=== PATIENT | male | born 1940 | race Caucasian/White ===

== ENCOUNTER 2017-04-26 18:41 | Inpatient (IN) ==
[2017-04-26] MEDS ORDERED: hydrALAZINE 20 MG/1 ML VIAL IV STA (19:12)
[2017-04-26] MEDS ORDERED: ONDANSETRON 4 MG/2 ML VIAL ONE (19:24)
[2017-04-26] MEDS ORDERED: hydrALAZINE 20 MG/1 ML VIAL ONE (19:24)
[2017-04-26] MEDS ORDERED: HYDROmorphone 2 MG/1 ML VIAL IV STA (19:24)
[2017-04-26] MEDS ORDERED: ONDANSETRON 4 MG/2 ML VIAL IV STA (19:24)
[2017-04-26] MEDS ORDERED: HYDROmorphone 2 MG/1 ML VIAL ONE (19:25)
[2017-04-26 20:15] LABS: CKMB % 3.5 %; Troponin I Only < 0.015 NG/ML (0.00-0.045)
[2017-04-26] MEDS ORDERED: GLUCAGON 1 MG VIAL IM PRN (20:37)
[2017-04-26] MEDS ORDERED: ONDANSETRON 4 MG/2 ML VIAL IV PRN (20:37)
[2017-04-26] MEDS ORDERED: DEXTROSE 50% 25 GM/50 ML SYRINGE IV PRN (20:37)
[2017-04-26] MEDS ORDERED: hydrALAZINE 20 MG/1 ML VIAL IV PRN (20:50)
[2017-04-26] MEDS: INSULIN GLARGINE 100 UNIT/ML SUBCUT SCH (22:18)
[2017-04-26] MEDS: METOPROLOL TARTRATE 25 MG TABLET PO SCH (22:18)
[2017-04-26] MEDS: TAMSULOSIN 0.4 MG CAPSULE PO SCH (22:18)
[2017-04-26 22:51] LABS: Apearance,Urine CLEAR (Clear); Bacteria,Urine Occasional /HPF (Few); Bilirubin,Urine Negative (Negative); Blood, Urine Small mg/dL (Negative); Glucose,Urine (UA) >=500 mg/dL (Negative); Ketones,Urine Negative (Negative); Nitrite,Urine Negative (Negative); Protein,Urine >=500 MG/DL; RBC,Urine 3 /HPF (0-4); Urine Color Amber (Yellow); Urine Specific Gravity 1.014 (1.001-1.035); WBC,Urine <1 /HPF (0-6)
[2017-04-27] MEDS: INSULIN LISPRO 100 UNIT/ML SUBCUT SCH ×4 (00:57→17:43)
[2017-04-27 04:40] LABS: Basophils % 0.4 % (0.0-0.8); Eosinophils # 0.1 10*3/uL (0.0-0.87); Eosinophils % 0.8 % (0.00-10.9); Hematocrit 32.3 VOL% (42.0-52.0); Hemoglobin 11.1 GM/DL (14.0-18.0); Immature Granulocytes % 0.4 %; Immature Granulocytes Absolute 0.04 #; Lymphocytes # 1.2 10*3/uL (1.4-4.0); Lymphocytes % 13.8 % (21.2-54.2); Mean Corpuscular HGB Conc 34.4 GM/DL (32-36); Mean Corpuscular Hemoglobin 32 PG (27-34); Mean Corpuscular Volume 92.6 FL (87-102); Mean Platelet Volume 11.2 FL (9.6-12.0); Neutrophils # 6.6 10*3/uL (1.4-7.4); Neutrophils % 73.6 % (38.7-73.9); Platelet Count 169 T/CUMM (130-400); Red Blood Count 3.49 MC/CUMM (3.8-5.5); Red Cell Distribution Width 13.5 % (9.3-17.3); White Blood Count 8.9 T/CUMM (4-12)
[2017-04-27 05:06] LABS: Albumin 3.1 G/DL (3.4-5.0); Bilirubin,Total 3.8 MG/DL (0.2-1.0); Osmolality,Calculated 289.7 MOS/KG (273-304); Potassium 4.2 MMOL/L (3.5-5.1); Risk Ratio 6.57; Total Protein 6.7 G/DL (6.4-8.3); VLDL CHOLESTEROL 43.2 MG/DL
[2017-04-27] MEDS: FUROSEMIDE 40 MG TABLET PO SCH (08:40)
[2017-04-27] MEDS: amLODIPine 5 MG TABLET PO SCH (08:41)
[2017-04-27] MEDS: METOPROLOL TARTRATE 25 MG TABLET PO SCH ×2 (08:41→20:15)
[2017-04-27] MEDS: ENOXAPARIN 30 MG/0.3 ML SYRINGE SUBCUT SCH (08:41)
[2017-04-27] MEDS: PANTOPRAZOLE 40 MG TABLET PO SCH (08:41)
[2017-04-27] MEDS: GABAPENTIN 300 MG CAPSULE PO SCH ×2 (08:41→20:15)
[2017-04-27] MEDS ORDERED: COLESEVELAM 625 MG TABLET PO SCH (09:00)
[2017-04-27] MEDS: diphenhydrAMINE CAP 25 MG CAPSULE PO PRN ×2 (14:09→20:58)
[2017-04-27 14:53] LABS: % Iron Saturation 21.2 % (18-50)
[2017-04-27] MEDS: INSULIN GLARGINE 100 UNIT/ML SUBCUT SCH (20:15)
[2017-04-27] MEDS: TAMSULOSIN 0.4 MG CAPSULE PO SCH (20:15)
[2017-04-28] MEDS: INSULIN LISPRO 100 UNIT/ML SUBCUT SCH ×4 (00:27→22:22)
[2017-04-28] MEDS: diphenhydrAMINE CAP 25 MG CAPSULE PO PRN ×2 (00:32→05:17)
[2017-04-28 06:29] LABS: Calcium 8.6 MG/DL (8.5-10.1); Potassium 4.2 MMOL/L (3.5-5.1)
[2017-04-28 06:34] LABS: Bilirubin,Direct 3.05 MG/DL (0.0-0.20); Bilirubin,Indirect 1.2 MG/DL (0.0-1.0); Bilirubin,Total 4.2 MG/DL (0.2-1.0); Total Protein 6.5 G/DL (6.4-8.3)
[2017-04-28] MEDS ORDERED: REGADENOSON 0.4 MG/5 ML SYRINGE IV ONE (08:29)
[2017-04-28 08:32] LABS: Hepatitis A Ab IgM Quant 0.16 Index; Hepatitis A Ab IgM Result Negative (Negative); Hepatitis B Core IgM Quant 0.12 Index; Hepatitis B Core IgM Result Negative (Negative); Hepatitis B Surface Ag Quant 0.16 Index; Hepatitis B Surface Ag Result Negative (Negative); Hepatitis C Virus Ab Quant 0.05 Index; Hepatitis C Virus Ab Result Negative (Negative)
[2017-04-28] MEDS ORDERED: ALUM/MAG/SIMETH/LIDO VISC 1:1 30 ML BOTTLE PO ONE (10:07)
[2017-04-28] MEDS: hydrOXYzine HCL 25 MG TABLET PO SCH ×3 (11:00→22:20)
[2017-04-28] MEDS: METOPROLOL TARTRATE 25 MG TABLET PO SCH (11:01)
[2017-04-28] MEDS: FUROSEMIDE 40 MG TABLET PO SCH (11:01)
[2017-04-28] MEDS: GABAPENTIN 300 MG CAPSULE PO SCH ×2 (11:02→22:20)
[2017-04-28] MEDS: POLYETHYLENE GLYCOL POWDER 17 GM PACK PO SCH ×2 (11:02→22:19)
[2017-04-28] MEDS: amLODIPine 5 MG TABLET PO SCH (11:03)
[2017-04-28] MEDS: ENOXAPARIN 30 MG/0.3 ML SYRINGE SUBCUT SCH (11:04)
[2017-04-28] MEDS: PANTOPRAZOLE 40 MG TABLET PO SCH (11:04)
[2017-04-28 12:31] LABS: CKMB % 1.7 %; Troponin I Only < 0.015 NG/ML (0.00-0.045)
[2017-04-28 13:50] LABS: Apearance,Urine CLEAR (Clear); Bilirubin,Urine Negative (Negative); Blood, Urine Small mg/dL (Negative); Glucose,Urine (UA) >=500 mg/dL (Negative); Ketones,Urine Negative (Negative); Nitrite,Urine Negative (Negative); Protein,Urine 100 MG/DL; RBC,Urine 1 /HPF (0-4); Squamous Epithelial Cell,Urine Occasional /HPF (0-10); Urine Color Yellow (Yellow); Urine Specific Gravity 1.005 (1.001-1.035); Urine Urobilinogen < 2.0 EU/DL (0.2-1.0)
[2017-04-28] MEDS ORDERED: MAGNESIUM SULF RIDER 2 GM in PREMIX 1 EACH IV PRN (14:26)
[2017-04-28] MEDS ORDERED: POTASSIUM CHLORIDE RIDER 10 MEQ in PREMIX 1 EACH IV PRN (14:26)
[2017-04-28] MEDS: ASPIRIN EC 81 MG TABLET PO SCH (15:17)
[2017-04-28] MEDS: SODIUM BICARB INJ 100 MEQ in SODIUM CHLORIDE 0.45% 1,000 ML IV SCH (15:49)
[2017-04-28] MEDS ORDERED: INSULIN GLARGINE 100 UNIT/ML SUBCUT SCH (18:00)
[2017-04-28] MEDS: METOPROLOL TARTRATE 50 MG TABLET PO SCH (22:20)
[2017-04-28] MEDS: TAMSULOSIN 0.4 MG CAPSULE PO SCH (22:20)
[2017-04-29] MEDS: INSULIN LISPRO 100 UNIT/ML SUBCUT SCH ×4 (04:13→18:36)
[2017-04-29 06:19] LABS: Basophils # 0.1 10*3/uL (0.0-0.2); Basophils % 0.8 % (0.0-0.8); Eosinophils # 0.3 10*3/uL (0.0-0.87); Eosinophils % 4.1 % (0.00-10.9); Hematocrit 30.2 VOL% (42.0-52.0); Hemoglobin 10.4 GM/DL (14.0-18.0); Immature Granulocytes % 0.7 %; Immature Granulocytes Absolute 0.04 #; Lymphocytes # 1.3 10*3/uL (1.4-4.0); Lymphocytes % 21.7 % (21.2-54.2); Mean Corpuscular HGB Conc 34.4 GM/DL (32-36); Mean Corpuscular Hemoglobin 32 PG (27-34); Mean Corpuscular Volume 93.8 FL (87-102); Mean Platelet Volume 11.5 FL (9.6-12.0); Monocytes # 0.5 10*3/uL (0.11-0.8); Monocytes % 8.8 % (1.7-12.7); Neutrophils # 3.9 10*3/uL (1.4-7.4); Neutrophils % 63.9 % (38.7-73.9); Platelet Count 186 T/CUMM (130-400); Red Blood Count 3.22 MC/CUMM (3.8-5.5); Red Cell Distribution Width 14.2 % (9.3-17.3); White Blood Count 6.1 T/CUMM (4-12)
[2017-04-29 06:49] LABS: Calcium 8.9 MG/DL (8.5-10.1); Magnesium 2.7 MG/DL (1.8-2.4); Osmolality,Calculated 297.4 MOS/KG (273-304)
[2017-04-29 06:51] LABS: Albumin 2.8 G/DL (3.4-5.0); Bilirubin,Direct 2.44 MG/DL (0.0-0.20); Bilirubin,Indirect 0.7 MG/DL (0.0-1.0); Bilirubin,Total 3.1 MG/DL (0.2-1.0); Total Protein 6.6 G/DL (6.4-8.3)
[2017-04-29] MEDS: SODIUM BICARB INJ 100 MEQ in SODIUM CHLORIDE 0.45% 1,000 ML IV SCH ×3 (10:03→23:10)
[2017-04-29] MEDS: amLODIPine 5 MG TABLET PO SCH (10:05)
[2017-04-29] MEDS: METOPROLOL TARTRATE 50 MG TABLET PO SCH ×2 (10:05→21:20)
[2017-04-29] MEDS: PANTOPRAZOLE 40 MG TABLET PO SCH (10:05)
[2017-04-29] MEDS: ASPIRIN EC 81 MG TABLET PO SCH (10:05)
[2017-04-29] MEDS: ENOXAPARIN 30 MG/0.3 ML SYRINGE SUBCUT SCH (10:07)
[2017-04-29] MEDS: FUROSEMIDE 40 MG TABLET PO SCH (10:19)
[2017-04-29] MEDS: hydrOXYzine HCL 25 MG TABLET PO SCH ×3 (10:19→21:20)
[2017-04-29] MEDS: POLYETHYLENE GLYCOL POWDER 17 GM PACK PO SCH ×2 (10:19→21:21)
[2017-04-29] MEDS: GABAPENTIN 300 MG CAPSULE PO SCH ×2 (10:19→21:20)
[2017-04-29] MEDS ORDERED: diphenhydrAMINE CAP 50 MG CAPSULE ONE (10:55)
[2017-04-29] MEDS ORDERED: DIAZEPAM 5 MG TABLET ONE (10:55)
[2017-04-29] MEDS ORDERED: diphenhydrAMINE CAP 25 MG CAPSULE ONE (10:56)
[2017-04-29] MEDS ORDERED: LIDOCAINE 1% 20 ML VIAL ONE (10:57)
[2017-04-29] MEDS ORDERED: HEPARIN/NACL 0.9% 2 UNITS/ML 1,000 ML IV ONE (10:57)
[2017-04-29] MEDS ORDERED: diphenhydrAMINE CAP 25 MG CAPSULE PO ONE (11:02)
[2017-04-29] MEDS ORDERED: DIAZEPAM 5 MG TABLET PO ONE (11:03)
[2017-04-29] MEDS ORDERED: HEPARIN/NACL 0.9% 2 UNITS/ML 500 ML IV ONE (11:11)
[2017-04-29] MEDS ORDERED: MIDAZOLAM 2 MG/2 ML VIAL ONE (11:18)
[2017-04-29] MEDS ORDERED: fentaNYL 100 MCG/2 ML VIAL ONE (11:19)
[2017-04-29] MEDS ORDERED: BIVALIRUDIN 250 MG VIAL IV ONE (12:04)
[2017-04-29] MEDS ORDERED: MORPHINE 2 MG/1 ML SYRINGE IV PRN (12:26)
[2017-04-29] MEDS ORDERED: ACETAMINOPHEN 325 MG TABLET PO PRN (12:26)
[2017-04-29] MEDS: TAMSULOSIN 0.4 MG CAPSULE PO SCH (21:20)
[2017-04-29] MEDS: EZETIMIBE 10 MG TABLET PO SCH (21:23)
[2017-04-29] MEDS: INSULIN GLARGINE 100 UNIT/ML SUBCUT SCH (21:23)
[2017-04-30] MEDS: INSULIN LISPRO 100 UNIT/ML SUBCUT SCH ×4 (01:03→18:04)
[2017-04-30 05:14] LABS: Basophils # 0.1 10*3/uL (0.0-0.2); Basophils % 1.1 % (0.0-0.8); Eosinophils # 0.3 10*3/uL (0.0-0.87); Hemoglobin 10.1 GM/DL (14.0-18.0); Immature Granulocytes % 0.5 %; Immature Granulocytes Absolute 0.03 #; Lymphocytes # 1.4 10*3/uL (1.4-4.0); Lymphocytes % 21.6 % (21.2-54.2); Mean Corpuscular HGB Conc 33.7 GM/DL (32-36); Mean Corpuscular Hemoglobin 32 PG (27-34); Mean Platelet Volume 10.7 FL (9.6-12.0); Monocytes # 0.5 10*3/uL (0.11-0.8); Monocytes % 7.5 % (1.7-12.7); Neutrophils # 4.1 10*3/uL (1.4-7.4); Neutrophils % 64.3 % (38.7-73.9); Platelet Count 192 T/CUMM (130-400); Red Blood Count 3.19 MC/CUMM (3.8-5.5); Red Cell Distribution Width 14.2 % (9.3-17.3); White Blood Count 6.4 T/CUMM (4-12)
[2017-04-30 05:43] LABS: Calcium 8.1 MG/DL (8.5-10.1); Magnesium 2.4 MG/DL (1.8-2.4); Osmolality,Calculated 293.3 MOS/KG (273-304); Potassium 3.9 MMOL/L (3.5-5.1)
[2017-04-30 05:46] LABS: Calcium 8.1 MG/DL (8.5-10.1); Osmolality,Calculated 295.1 MOS/KG (273-304); Potassium 3.9 MMOL/L (3.5-5.1)
[2017-04-30 05:50] LABS: Albumin 2.8 G/DL (3.4-5.0); Bilirubin,Total 1.8 MG/DL (0.2-1.0); Calcium 8.3 MG/DL (8.5-10.1); Osmolality,Calculated 293.3 MOS/KG (273-304); Total Protein 6.4 G/DL (6.4-8.3)
[2017-04-30] MEDS: POLYETHYLENE GLYCOL POWDER 17 GM PACK PO SCH ×2 (10:15→21:16)
[2017-04-30] MEDS: GABAPENTIN 300 MG CAPSULE PO SCH ×2 (10:16→21:16)
[2017-04-30] MEDS: METOPROLOL TARTRATE 50 MG TABLET PO SCH ×2 (10:16→21:16)
[2017-04-30] MEDS: ASPIRIN EC 81 MG TABLET PO SCH (10:16)
[2017-04-30] MEDS: FUROSEMIDE 40 MG TABLET PO SCH (10:16)
[2017-04-30] MEDS: PANTOPRAZOLE 40 MG TABLET PO SCH (10:16)
[2017-04-30] MEDS: ENOXAPARIN 30 MG/0.3 ML SYRINGE SUBCUT SCH (10:17)
[2017-04-30] MEDS: hydrOXYzine HCL 25 MG TABLET PO SCH ×3 (10:17→21:16)
[2017-04-30] MEDS: amLODIPine 5 MG TABLET PO SCH (10:17)
[2017-04-30] MEDS ORDERED: DEXTROSE 50% 25 GM/50 ML VIAL IV PRN (11:00)
[2017-04-30] MEDS: EZETIMIBE 10 MG TABLET PO SCH (21:16)
[2017-04-30] MEDS: TAMSULOSIN 0.4 MG CAPSULE PO SCH (21:16)
[2017-04-30] MEDS: INSULIN GLARGINE 100 UNIT/ML SUBCUT SCH (21:16)
[2017-05-01] MEDS: INSULIN LISPRO 100 UNIT/ML SUBCUT SCH ×4 (00:52→17:56)
[2017-05-01 04:16] LABS: Basophils # 0.1 10*3/uL (0.0-0.2); Eosinophils # 0.4 10*3/uL (0.0-0.87); Eosinophils % 5.8 % (0.00-10.9); Hematocrit 31.2 VOL% (42.0-52.0); Hemoglobin 10.4 GM/DL (14.0-18.0); Immature Granulocytes % 0.8 %; Immature Granulocytes Absolute 0.05 #; Lymphocytes # 1.5 10*3/uL (1.4-4.0); Lymphocytes % 23.7 % (21.2-54.2); Mean Corpuscular HGB Conc 33.3 GM/DL (32-36); Mean Corpuscular Hemoglobin 32 PG (27-34); Mean Corpuscular Volume 95.4 FL (87-102); Monocytes # 0.5 10*3/uL (0.11-0.8); Monocytes % 8.4 % (1.7-12.7); Neutrophils # 3.7 10*3/uL (1.4-7.4); Neutrophils % 60.3 % (38.7-73.9); Platelet Count 196 T/CUMM (130-400); Red Blood Count 3.27 MC/CUMM (3.8-5.5); Red Cell Distribution Width 14.4 % (9.3-17.3); White Blood Count 6.2 T/CUMM (4-12)
[2017-05-01 04:50] LABS: Albumin 2.9 G/DL (3.4-5.0); Calcium 8.4 MG/DL (8.5-10.1); Osmolality,Calculated 293.4 MOS/KG (273-304); Potassium 4.2 MMOL/L (3.5-5.1); Total Protein 6.5 G/DL (6.4-8.3)
[2017-05-01 04:59] LABS: Calcium 8.3 MG/DL (8.5-10.1); Magnesium 2.5 MG/DL (1.8-2.4); Osmolality,Calculated 291.4 MOS/KG (273-304); Potassium 4.2 MMOL/L (3.5-5.1)
[2017-05-01] MEDS: ENOXAPARIN 30 MG/0.3 ML SYRINGE SUBCUT SCH (09:49)
[2017-05-01] MEDS: METOPROLOL TARTRATE 50 MG TABLET PO SCH ×2 (09:50→21:22)
[2017-05-01] MEDS: PANTOPRAZOLE 40 MG TABLET PO SCH (09:50)
[2017-05-01] MEDS: ASPIRIN EC 81 MG TABLET PO SCH (09:50)
[2017-05-01] MEDS: POLYETHYLENE GLYCOL POWDER 17 GM PACK PO SCH ×2 (09:50→21:22)
[2017-05-01] MEDS: FUROSEMIDE 40 MG TABLET PO SCH (09:50)
[2017-05-01] MEDS: GABAPENTIN 300 MG CAPSULE PO SCH ×2 (09:50→21:21)
[2017-05-01] MEDS: amLODIPine 5 MG TABLET PO SCH (09:50)
[2017-05-01] MEDS ORDERED: hydrALAZINE 10 MG TABLET PO SCH (13:30)
[2017-05-01] MEDS: hydrALAZINE 25 MG TABLET PO SCH ×2 (14:03→21:22)
[2017-05-01] MEDS: ISOSORBIDE MONONITRATE 30 MG TABLET PO SCH (14:03)
[2017-05-01] MEDS: TAMSULOSIN 0.4 MG CAPSULE PO SCH (21:21)
[2017-05-01] MEDS: EZETIMIBE 10 MG TABLET PO SCH (21:21)
[2017-05-01] MEDS: INSULIN GLARGINE 100 UNIT/ML SUBCUT SCH (21:22)
[2017-05-02] MEDS: INSULIN LISPRO 100 UNIT/ML SUBCUT SCH ×4 (00:19→17:22)
[2017-05-02 03:37] LABS: Basophils # 0.1 10*3/uL (0.0-0.2); Basophils % 0.9 % (0.0-0.8); Eosinophils # 0.5 10*3/uL (0.0-0.87); Eosinophils % 6.6 % (0.00-10.9); Hematocrit 28.4 VOL% (42.0-52.0); Hemoglobin 9.4 GM/DL (14.0-18.0); Immature Granulocytes % 0.9 %; Immature Granulocytes Absolute 0.06 #; Lymphocytes # 1.9 10*3/uL (1.4-4.0); Lymphocytes % 26.8 % (21.2-54.2); Mean Corpuscular HGB Conc 33.1 GM/DL (32-36); Mean Corpuscular Hemoglobin 32 PG (27-34); Mean Corpuscular Volume 96.6 FL (87-102); Mean Platelet Volume 11.1 FL (9.6-12.0); Monocytes # 0.7 10*3/uL (0.11-0.8); Monocytes % 9.5 % (1.7-12.7); Neutrophils # 3.9 10*3/uL (1.4-7.4); Neutrophils % 55.3 % (38.7-73.9); Platelet Count 197 T/CUMM (130-400); Red Blood Count 2.94 MC/CUMM (3.8-5.5); Red Cell Distribution Width 14.1 % (9.3-17.3)
[2017-05-02 04:13] LABS: Albumin 2.6 G/DL (3.4-5.0); Bilirubin,Total 0.9 MG/DL (0.2-1.0); Osmolality,Calculated 298.3 MOS/KG (273-304); Potassium 4.5 MMOL/L (3.5-5.1); Total Protein 5.9 G/DL (6.4-8.3)
[2017-05-02] MEDS: ASPIRIN EC 81 MG TABLET PO SCH (09:38)
[2017-05-02] MEDS: GABAPENTIN 300 MG CAPSULE PO SCH ×2 (09:38→21:01)
[2017-05-02] MEDS: hydrALAZINE 25 MG TABLET PO SCH ×3 (09:38→21:01)
[2017-05-02] MEDS: PANTOPRAZOLE 40 MG TABLET PO SCH (09:38)
[2017-05-02] MEDS: FUROSEMIDE 40 MG TABLET PO SCH (09:38)
[2017-05-02] MEDS: POLYETHYLENE GLYCOL POWDER 17 GM PACK PO SCH ×2 (09:39→21:01)
[2017-05-02] MEDS: amLODIPine 5 MG TABLET PO SCH (09:39)
[2017-05-02] MEDS: ISOSORBIDE MONONITRATE 30 MG TABLET PO SCH (09:39)
[2017-05-02] MEDS: ENOXAPARIN 30 MG/0.3 ML SYRINGE SUBCUT SCH (09:39)
[2017-05-02] MEDS: METOPROLOL TARTRATE 50 MG TABLET PO SCH ×2 (09:39→21:01)
[2017-05-02] MEDS: EZETIMIBE 10 MG TABLET PO SCH (21:01)
[2017-05-02] MEDS: TAMSULOSIN 0.4 MG CAPSULE PO SCH (21:01)
[2017-05-02] MEDS: INSULIN GLARGINE 100 UNIT/ML SUBCUT SCH (21:02)
[2017-05-03] MEDS: INSULIN LISPRO 100 UNIT/ML SUBCUT SCH ×4 (00:12→18:25)
[2017-05-03 05:26] LABS: Basophils # 0.1 10*3/uL (0.0-0.2); Eosinophils # 0.5 10*3/uL (0.0-0.87); Eosinophils % 6.8 % (0.00-10.9); Hematocrit 29.9 VOL% (42.0-52.0); Immature Granulocytes Absolute 0.07 #; Lymphocytes # 1.8 10*3/uL (1.4-4.0); Lymphocytes % 25.6 % (21.2-54.2); Mean Corpuscular HGB Conc 33.4 GM/DL (32-36); Mean Corpuscular Hemoglobin 33 PG (27-34); Mean Corpuscular Volume 97.1 FL (87-102); Mean Platelet Volume 11.1 FL (9.6-12.0); Monocytes # 0.6 10*3/uL (0.11-0.8); Monocytes % 9.3 % (1.7-12.7); Neutrophils # 3.9 10*3/uL (1.4-7.4); Neutrophils % 56.3 % (38.7-73.9); Platelet Count 215 T/CUMM (130-400); Red Blood Count 3.08 MC/CUMM (3.8-5.5); Red Cell Distribution Width 13.8 % (9.3-17.3); White Blood Count 6.9 T/CUMM (4-12)
[2017-05-03 05:37] LABS: INR 0.9; PT Patient Result 9.8 SECS
[2017-05-03 05:58] LABS: Albumin 2.7 G/DL (3.4-5.0); Bilirubin,Total 1.4 MG/DL (0.2-1.0); Calcium 8.3 MG/DL (8.5-10.1); Magnesium 2.5 MG/DL (1.8-2.4); Osmolality,Calculated 292.4 MOS/KG (273-304); Potassium 4.4 MMOL/L (3.5-5.1); Total Protein 6.3 G/DL (6.4-8.3)
[2017-05-03] MEDS: amLODIPine 5 MG TABLET PO SCH (08:45)
[2017-05-03] MEDS: ENOXAPARIN 30 MG/0.3 ML SYRINGE SUBCUT SCH (08:45)
[2017-05-03] MEDS: FUROSEMIDE 40 MG TABLET PO SCH (08:45)
[2017-05-03] MEDS: METOPROLOL TARTRATE 50 MG TABLET PO SCH ×2 (08:46→21:34)
[2017-05-03] MEDS: ISOSORBIDE MONONITRATE 30 MG TABLET PO SCH (08:46)
[2017-05-03] MEDS: ASPIRIN EC 81 MG TABLET PO SCH (08:46)
[2017-05-03] MEDS: PANTOPRAZOLE 40 MG TABLET PO SCH (08:46)
[2017-05-03] MEDS: GABAPENTIN 300 MG CAPSULE PO SCH ×2 (08:46→21:34)
[2017-05-03] MEDS: hydrALAZINE 25 MG TABLET PO SCH ×3 (08:46→21:34)
[2017-05-03] MEDS: POLYETHYLENE GLYCOL POWDER 17 GM PACK PO SCH ×2 (08:47→21:34)
[2017-05-03] MEDS: EZETIMIBE 10 MG TABLET PO SCH (21:34)
[2017-05-03] MEDS: TAMSULOSIN 0.4 MG CAPSULE PO SCH (21:34)
[2017-05-03] MEDS: INSULIN GLARGINE 100 UNIT/ML SUBCUT SCH (21:35)
[2017-05-04] MEDS: INSULIN LISPRO 100 UNIT/ML SUBCUT SCH ×4 (01:37→17:40)
[2017-05-04 05:00] LABS: Basophils # 0.1 10*3/uL (0.0-0.2); Basophils % 1.1 % (0.0-0.8); Eosinophils # 0.5 10*3/uL (0.0-0.87); Eosinophils % 6.7 % (0.00-10.9); Hematocrit 30.3 VOL% (42.0-52.0); Hemoglobin 10.2 GM/DL (14.0-18.0); Immature Granulocytes % 0.8 %; Immature Granulocytes Absolute 0.06 #; Lymphocytes # 1.7 10*3/uL (1.4-4.0); Lymphocytes % 24.2 % (21.2-54.2); Mean Corpuscular HGB Conc 33.7 GM/DL (32-36); Mean Corpuscular Hemoglobin 32 PG (27-34); Mean Corpuscular Volume 95.9 FL (87-102); Monocytes # 0.6 10*3/uL (0.11-0.8); Monocytes % 7.9 % (1.7-12.7); Neutrophils # 4.2 10*3/uL (1.4-7.4); Neutrophils % 59.3 % (38.7-73.9); Platelet Count 224 T/CUMM (130-400); Red Blood Count 3.16 MC/CUMM (3.8-5.5); Red Cell Distribution Width 13.5 % (9.3-17.3); White Blood Count 7.1 T/CUMM (4-12)
[2017-05-04 05:32] LABS: Albumin 2.8 G/DL (3.4-5.0); Calcium 8.5 MG/DL (8.5-10.1); Osmolality,Calculated 293.5 MOS/KG (273-304); Potassium 4.6 MMOL/L (3.5-5.1); Total Protein 6.3 G/DL (6.4-8.3)
[2017-05-04 06:19] LABS: Calcium 8.4 MG/DL (8.5-10.1); Magnesium 2.6 MG/DL (1.8-2.4); Osmolality,Calculated 292.7 MOS/KG (273-304); Potassium 4.6 MMOL/L (3.5-5.1)
[2017-05-04] MEDS: ENOXAPARIN 30 MG/0.3 ML SYRINGE SUBCUT SCH (08:51)
[2017-05-04] MEDS: FUROSEMIDE 40 MG TABLET PO SCH (08:52)
[2017-05-04] MEDS: GABAPENTIN 300 MG CAPSULE PO SCH ×2 (08:52→21:12)
[2017-05-04] MEDS: ASPIRIN EC 81 MG TABLET PO SCH (08:52)
[2017-05-04] MEDS: amLODIPine 5 MG TABLET PO SCH (08:52)
[2017-05-04] MEDS: PANTOPRAZOLE 40 MG TABLET PO SCH (08:52)
[2017-05-04] MEDS: hydrALAZINE 25 MG TABLET PO SCH ×3 (08:52→21:12)
[2017-05-04] MEDS: ISOSORBIDE MONONITRATE 30 MG TABLET PO SCH (08:52)
[2017-05-04] MEDS: METOPROLOL TARTRATE 50 MG TABLET PO SCH ×2 (08:53→21:12)
[2017-05-04] MEDS: POLYETHYLENE GLYCOL POWDER 17 GM PACK PO SCH ×2 (08:54→21:13)
[2017-05-04] MEDS: EZETIMIBE 10 MG TABLET PO SCH (21:12)
[2017-05-04] MEDS: TAMSULOSIN 0.4 MG CAPSULE PO SCH (21:12)
[2017-05-04] MEDS: INSULIN GLARGINE 100 UNIT/ML SUBCUT SCH (21:13)
[2017-05-05] MEDS: INSULIN LISPRO 100 UNIT/ML SUBCUT SCH ×4 (00:11→18:00)
[2017-05-05 05:40] LABS: Basophils # 0.1 10*3/uL (0.0-0.2); Basophils % 1.1 % (0.0-0.8); Eosinophils # 0.4 10*3/uL (0.0-0.87); Eosinophils % 6.1 % (0.00-10.9); Hematocrit 30.6 VOL% (42.0-52.0); Hemoglobin 10.2 GM/DL (14.0-18.0); Immature Granulocytes Absolute 0.07 #; Lymphocytes # 1.8 10*3/uL (1.4-4.0); Lymphocytes % 24.8 % (21.2-54.2); Mean Corpuscular HGB Conc 33.3 GM/DL (32-36); Mean Corpuscular Hemoglobin 32 PG (27-34); Mean Corpuscular Volume 95.3 FL (87-102); Mean Platelet Volume 11.2 FL (9.6-12.0); Monocytes # 0.7 10*3/uL (0.11-0.8); Neutrophils # 4.1 10*3/uL (1.4-7.4); Platelet Count 225 T/CUMM (130-400); Red Blood Count 3.21 MC/CUMM (3.8-5.5); Red Cell Distribution Width 13.1 % (9.3-17.3); White Blood Count 7.2 T/CUMM (4-12)
[2017-05-05 06:13] LABS: Calcium 8.5 MG/DL (8.5-10.1); Magnesium 2.5 MG/DL (1.8-2.4); Osmolality,Calculated 295.5 MOS/KG (273-304); Potassium 4.8 MMOL/L (3.5-5.1)
[2017-05-05] MEDS: ISOSORBIDE MONONITRATE 30 MG TABLET PO SCH (08:42)
[2017-05-05] MEDS: POLYETHYLENE GLYCOL POWDER 17 GM PACK PO SCH ×2 (08:42→21:39)
[2017-05-05] MEDS: ASPIRIN EC 81 MG TABLET PO SCH (08:42)
[2017-05-05] MEDS: hydrALAZINE 25 MG TABLET PO SCH ×3 (08:42→21:39)
[2017-05-05] MEDS: amLODIPine 5 MG TABLET PO SCH (08:43)
[2017-05-05] MEDS: FUROSEMIDE 40 MG TABLET PO SCH (08:43)
[2017-05-05] MEDS: PANTOPRAZOLE 40 MG TABLET PO SCH (08:43)
[2017-05-05] MEDS: GABAPENTIN 300 MG CAPSULE PO SCH ×2 (08:43→21:41)
[2017-05-05] MEDS: METOPROLOL TARTRATE 50 MG TABLET PO SCH ×2 (08:43→21:39)
[2017-05-05] MEDS: ENOXAPARIN 30 MG/0.3 ML SYRINGE SUBCUT SCH (08:44)
[2017-05-05] MEDS: EZETIMIBE 10 MG TABLET PO SCH (21:39)
[2017-05-05] MEDS: TAMSULOSIN 0.4 MG CAPSULE PO SCH (21:39)
[2017-05-05] MEDS: INSULIN GLARGINE 100 UNIT/ML SUBCUT SCH (21:41)
[2017-05-06] MEDS: INSULIN LISPRO 100 UNIT/ML SUBCUT SCH ×4 (02:33→18:30)
[2017-05-06 04:25] LABS: Albumin 2.9 G/DL (3.4-5.0); Bilirubin,Total 0.7 MG/DL (0.2-1.0); Calcium 8.4 MG/DL (8.5-10.1); Osmolality,Calculated 295.7 MOS/KG (273-304); Potassium 4.5 MMOL/L (3.5-5.1); Total Protein 6.5 G/DL (6.4-8.3)
[2017-05-06] MEDS ORDERED: GLUCAGON 1 MG VIAL IM PRN (06:33)
[2017-05-06] MEDS ORDERED: DEXTROSE 50% 25 GM/50 ML SYRINGE IV PRN (06:33)
[2017-05-06 06:57] LABS: Allen Test Positive; Pt O2 Delivery Device Room Air
[2017-05-06 06:58] LABS: ABG Base Excess -0.4 MMOL/L (-2.5-2.5); ABG Oxygen Saturation 95.8 % (95-100); ABG PCO2 45.1 MM HG (35-48); ABG PH 7.357 (7.35-7.45); ABG PO2 77.7 MM HG (80-95); ABG TCO2 22.9 MMOL/L (23-27)
[2017-05-06] MEDS: SODIUM CHLORIDE 0.9% 1,000 ML IV SCH (07:51)
[2017-05-06] MEDS: ASPIRIN EC 81 MG TABLET PO SCH (08:49)
[2017-05-06] MEDS: ENOXAPARIN 30 MG/0.3 ML SYRINGE SUBCUT SCH (08:49)
[2017-05-06] MEDS: METOPROLOL TARTRATE 50 MG TABLET PO SCH ×2 (08:49→21:27)
[2017-05-06] MEDS: GABAPENTIN 300 MG CAPSULE PO SCH ×2 (08:49→21:28)
[2017-05-06] MEDS: amLODIPine 5 MG TABLET PO SCH (08:49)
[2017-05-06] MEDS: ISOSORBIDE MONONITRATE 30 MG TABLET PO SCH (08:49)
[2017-05-06] MEDS: PANTOPRAZOLE 40 MG TABLET PO SCH (08:49)
[2017-05-06] MEDS: FUROSEMIDE 40 MG TABLET PO SCH (08:49)
[2017-05-06] MEDS: POLYETHYLENE GLYCOL POWDER 17 GM PACK PO SCH ×2 (08:50→21:28)
[2017-05-06] MEDS: CHLORHEXIDINE 0.12% ORAL RINSE 60 ML BOTTLE SWISH/SPIT SCH ×2 (08:51→21:30)
[2017-05-06] MEDS ORDERED: CHLORHEXIDINE 4% SOLN 118 ML BOTTLE TOP SCH (09:00)
[2017-05-06] MEDS ORDERED: MAGNESIUM HYDROXIDE SUSP 30 ML UDCUP PO SCH (09:00)
[2017-05-06] MEDS: LACTULOSE 20 GM/30 ML UDCUP PO SCH ×2 (12:28→15:22)
[2017-05-06] MEDS: TAMSULOSIN 0.4 MG CAPSULE PO SCH (21:27)
[2017-05-06] MEDS: EZETIMIBE 10 MG TABLET PO SCH (21:28)
[2017-05-06] MEDS: INSULIN GLARGINE 100 UNIT/ML SUBCUT SCH (21:29)
[2017-05-07] MEDS: INSULIN LISPRO 100 UNIT/ML SUBCUT SCH ×4 (01:17→18:05)
[2017-05-07 05:03] LABS: Basophils # 0.1 10*3/uL (0.0-0.2); Basophils % 1.2 % (0.0-0.8); Eosinophils # 0.4 10*3/uL (0.0-0.87); Eosinophils % 5.7 % (0.00-10.9); Hematocrit 31.6 VOL% (42.0-52.0); Hemoglobin 10.7 GM/DL (14.0-18.0); Immature Granulocytes % 0.7 %; Immature Granulocytes Absolute 0.05 #; Lymphocytes % 26.7 % (21.2-54.2); Mean Corpuscular HGB Conc 33.9 GM/DL (32-36); Mean Corpuscular Hemoglobin 32 PG (27-34); Mean Corpuscular Volume 94.9 FL (87-102); Mean Platelet Volume 11.1 FL (9.6-12.0); Monocytes # 0.7 10*3/uL (0.11-0.8); Monocytes % 9.2 % (1.7-12.7); Neutrophils # 4.3 10*3/uL (1.4-7.4); Neutrophils % 56.5 % (38.7-73.9); Platelet Count 250 T/CUMM (130-400); Red Blood Count 3.33 MC/CUMM (3.8-5.5); Red Cell Distribution Width 12.8 % (9.3-17.3); White Blood Count 7.6 T/CUMM (4-12)
[2017-05-07 05:43] LABS: Albumin 2.8 G/DL (3.4-5.0); Bilirubin,Total 0.8 MG/DL (0.2-1.0); Calcium 8.5 MG/DL (8.5-10.1); Magnesium 2.4 MG/DL (1.8-2.4); Osmolality,Calculated 294.5 MOS/KG (273-304); Potassium 4.5 MMOL/L (3.5-5.1); Total Protein 6.2 G/DL (6.4-8.3)
[2017-05-07] MEDS: SODIUM CHLORIDE 0.9% 1,000 ML IV SCH (09:52)
[2017-05-07] MEDS: INSULIN GLARGINE 100 UNIT/ML SUBCUT SCH ×2 (09:52→22:15)
[2017-05-07] MEDS: amLODIPine 5 MG TABLET PO SCH (09:54)
[2017-05-07] MEDS: PANTOPRAZOLE 40 MG TABLET PO SCH (09:55)
[2017-05-07] MEDS: ASPIRIN EC 81 MG TABLET PO SCH (09:55)
[2017-05-07] MEDS: GABAPENTIN 300 MG CAPSULE PO SCH ×2 (09:55→22:11)
[2017-05-07] MEDS: METOPROLOL TARTRATE 50 MG TABLET PO SCH ×2 (09:55→22:11)
[2017-05-07] MEDS: FUROSEMIDE 40 MG TABLET PO SCH (09:55)
[2017-05-07] MEDS: ENOXAPARIN 30 MG/0.3 ML SYRINGE SUBCUT SCH (09:56)
[2017-05-07] MEDS: ISOSORBIDE MONONITRATE 30 MG TABLET PO SCH (09:56)
[2017-05-07] MEDS: POLYETHYLENE GLYCOL POWDER 17 GM PACK PO SCH ×2 (09:57→22:15)
[2017-05-07] MEDS: CHLORHEXIDINE 0.12% ORAL RINSE 60 ML BOTTLE SWISH/SPIT SCH ×2 (12:56→22:12)
[2017-05-07] MEDS: CHLORHEXIDINE 4% SOLN 118 ML BOTTLE TOP SCH ×3 (15:42→22:11)
[2017-05-07] MEDS: EZETIMIBE 10 MG TABLET PO SCH (22:11)
[2017-05-07] MEDS: TAMSULOSIN 0.4 MG CAPSULE PO SCH (22:11)
[2017-05-08] MEDS: INSULIN LISPRO 100 UNIT/ML SUBCUT SCH ×2 (01:07→05:31)
[2017-05-08 04:41] LABS: Basophils # 0.1 10*3/uL (0.0-0.2); Basophils % 0.9 % (0.0-0.8); Eosinophils # 0.4 10*3/uL (0.0-0.87); Eosinophils % 4.8 % (0.00-10.9); Hematocrit 29.4 VOL% (42.0-52.0); Hemoglobin 9.9 GM/DL (14.0-18.0); Immature Granulocytes % 0.7 %; Immature Granulocytes Absolute 0.05 #; Lymphocytes % 26.7 % (21.2-54.2); Mean Corpuscular HGB Conc 33.7 GM/DL (32-36); Mean Corpuscular Hemoglobin 32 PG (27-34); Mean Corpuscular Volume 94.5 FL (87-102); Mean Platelet Volume 11.4 FL (9.6-12.0); Monocytes # 0.7 10*3/uL (0.11-0.8); Monocytes % 9.3 % (1.7-12.7); Neutrophils # 4.3 10*3/uL (1.4-7.4); Neutrophils % 57.6 % (38.7-73.9); Platelet Count 260 T/CUMM (130-400); Red Blood Count 3.11 MC/CUMM (3.8-5.5); White Blood Count 7.5 T/CUMM (4-12)
[2017-05-08 05:17] LABS: Albumin 2.8 G/DL (3.4-5.0); Bilirubin,Total 0.7 MG/DL (0.2-1.0); Calcium 8.4 MG/DL (8.5-10.1); Osmolality,Calculated 301.4 MOS/KG (273-304); Potassium 4.7 MMOL/L (3.5-5.1)
[2017-05-08] MEDS ORDERED: LORazepam 1 MG TABLET PO ONE (05:30)
[2017-05-08] MEDS ORDERED: PANTOPRAZOLE 40 MG VIAL IV ONE (05:30)
[2017-05-08] MEDS ORDERED: PAPAVERINE 60 MG/2 ML VIAL ONE (05:36)
[2017-05-08] MEDS ORDERED: VANCOMYCIN 1,000 MG VIAL ONE (05:36)
[2017-05-08 05:37] LABS: Calcium 8.2 MG/DL (8.5-10.1); Magnesium 2.4 MG/DL (1.8-2.4); Osmolality,Calculated 298.7 MOS/KG (273-304); Potassium 4.6 MMOL/L (3.5-5.1)
[2017-05-08] MEDS: amLODIPine 5 MG TABLET PO SCH ×2 (05:50→12:04)
[2017-05-08] MEDS ORDERED: TRANEXAMIC ACID 1,000 MG/10 ML VIAL IV ONE (06:05)
[2017-05-08] MEDS ORDERED: CEFUROXIME INJ 1,500 MG in SODIUM CHLORIDE 0.9% 50 ML IV ONE (06:33)
[2017-05-08] MEDS ORDERED: CALCIUM CHLORIDE 1,000 MG/10 ML SYRINGE IV ONE (06:46)
[2017-05-08] MEDS ORDERED: SODIUM BICARBONATE 50 MEQ/50 ML VIAL IV ONE (06:46)
[2017-05-08] MEDS ORDERED: MINERAL OIL/PETROLATUM OPH OINT 3.5 GM TUBE ONE (06:46)
[2017-05-08] MEDS ORDERED: PHENYLEPHRINE 1 MG/10 ML SYRINGE IV ONE (06:46)
[2017-05-08] MEDS ORDERED: ETOMIDATE 20 MG/10 ML VIAL IV ONE (06:46)
[2017-05-08] MEDS ORDERED: ROCURONIUM 100 MG/10 ML VIAL IV ONE (06:46)
[2017-05-08] MEDS ORDERED: LIDOCAINE 2% 5 ML VIAL ONE (06:46)
[2017-05-08] MEDS ORDERED: NITROPRUSSIDE 50 MG/2 ML VIAL ONE (07:38)
[2017-05-08] MEDS ORDERED: POTASSIUM CHLORIDE RIDER 100 ML IV ONE (07:38)
[2017-05-08] MEDS ORDERED: INSULIN REGULAR DRIP 100 ML IV ONE (07:38)
[2017-05-08] MEDS ORDERED: PHENYLEPHRINE DRIP 40 MG/250 ML PREMIX IV ONE ×2 (07:41→08:58)
[2017-05-08 07:43] LABS: ABG Base Excess -3.3 MMOL/L (-2.5-2.5); ABG HCO3 22.7 MMOL/L (20-26); ABG Oxygen Saturation 98.9 % (95-100); ABG PCO2 44.9 MM HG (35-48); ABG PH 7.322 (7.35-7.45); ABG PO2 314.2 MM HG (80-95); ABG TCO2 24.1 MMOL/L (23-27); Glucose Heart Surgery 222 MG/DL (74-106); PCO2 Patient Temp Arterial 44.9 MMHG; PH Patient Temp Arterial 7.322; PO2 Patient Temp Arterial 314.2 MM HG; Patient Temperature 37 CELCIUS; Potassium Heart/CVR 4.3 MMOL/L (3.5-5.1); Sodium Heart/CVR 138 MMOL/L (135-145)
[2017-05-08 07:51] LABS: Amorphous Crystals,Urine Occasional /HPF (Few); Apearance,Urine Slightly Hazy (Clear); Bacteria,Urine Few /HPF (Few); Bilirubin,Urine Negative (Negative); Blood, Urine Small mg/dL (Negative); Glucose,Urine (UA) >=500 mg/dL (Negative); Ketones,Urine Negative (Negative); Mucus,Urine Occasional /LPF (Occasional); Nitrite,Urine Negative (Negative); Protein,Urine 100 MG/DL; RBC,Urine 2 /HPF (0-4); Squamous Epithelial Cell,Urine Occasional /HPF (0-10); Urine Color Yellow (Yellow); Urine Specific Gravity 1.011 (1.001-1.035); Urine Urobilinogen < 2.0 EU/DL (0.2-1.0)
[2017-05-08 08:56] LABS: Hematocrit Heart Surgery 25.3 PERCENT (42-52); Hemoglobin Heart Surgery 8.1 G/DL (14.0-18.0); PCO2 Patient Temp Venous 38.5 MM HG; PH Patient Temp Venous 7.362; Potassium Heart/CVR 4.7 MMOL/L (3.5-5.1); VBG Base Excess -3.1 MEQ/L (0-4); VBG HCO3 21.5 MEQ/L (24-28); VBG Oxygen Saturation 79.7 %; VBG PCO2 42.4 MMHG (41-51); VBG PH 7.333; VBG PO2 43.7 MMHG (17-40)
[2017-05-08 09:32] LABS: Hematocrit Heart Surgery 26.8 PERCENT (42-52); Hemoglobin Heart Surgery 8.6 G/DL (14.0-18.0); PCO2 Patient Temp Venous 35.7 MM HG; PH Patient Temp Venous 7.377; PO2 Patient Temp Venous 36.2 MM HG; Potassium Heart/CVR 4.3 MMOL/L (3.5-5.1); VBG Base Excess -3.6 MEQ/L (0-4); VBG HCO3 21.1 MEQ/L (24-28); VBG Oxygen Saturation 77.7 %; VBG PCO2 39.3 MMHG (41-51); VBG PH 7.349; VBG PO2 41.6 MMHG (17-40)
[2017-05-08 10:17] LABS: ABG Base Excess -5.5 MMOL/L (-2.5-2.5); ABG HCO3 19.9 MMOL/L (20-26); ABG PCO2 36.4 MM HG (35-48); ABG PH 7.342 (7.35-7.45); ABG TCO2 18.4 MMOL/L (23-27); Glucose Heart Surgery 277 MG/DL (74-106); Hematocrit Heart Surgery 25.9 PERCENT (42-52); Hemoglobin Heart Surgery 8.3 G/DL (14.0-18.0); Ionized Calcium Arterial 1.15 MMOL/L (1.21-1.46); PCO2 Patient Temp Arterial 36.4 MMHG; PH Patient Temp Arterial 7.342; Patient Temperature 37 CELCIUS; Potassium Heart/CVR 4.3 MMOL/L (3.5-5.1); Sodium Heart/CVR 136 MMOL/L (135-145)
[2017-05-08] MEDS ORDERED: ALBUMIN 25% 25 GM/100 ML VIAL IV ONE (10:19)
[2017-05-08] MEDS ORDERED: SODIUM BICARBONATE 50 MEQ/50 ML SYRINGE IV ONE (10:19)
[2017-05-08] MEDS ORDERED: PHENYLEPHRINE DRIP 20 MG/250 ML PREMIX IV ONE (10:19)
[2017-05-08] MEDS ORDERED: DEXTROSE 5% KCL 20 MEQ 20 MEQ/1,000 ML BAG IV ONE (10:19)
[2017-05-08] MEDS ORDERED: MANNITOL 100 GM/500 ML BAG IV ONE (10:19)
[2017-05-08] MEDS ORDERED: FUROSEMIDE 20 MG/2 ML VIAL ONE (10:20)
[2017-05-08] MEDS ORDERED: HEPARIN 10,000 UNIT/10 ML VIAL ONE (10:20)
[2017-05-08] MEDS ORDERED: PROTAMINE SULFATE 250 MG/25 ML VIAL IV ONE (10:20)
[2017-05-08] MEDS ORDERED: PROTAMINE SULFATE 50 MG/5 ML VIAL IV ONE ×3 (10:20→11:31)
[2017-05-08] MEDS ORDERED: MAGNESIUM SULFATE 1 GM/2 ML VIAL ONE (10:20)
[2017-05-08] MEDS ORDERED: methylPREDNISolone SOD SUC 1,000 MG/8 ML VIAL ONE (10:20)
[2017-05-08] MEDS ORDERED: POTASSIUM CHLORIDE 20 MEQ/10 ML VIAL ONE (10:20)
[2017-05-08] MEDS ORDERED: SEVOFLURANE 1 UNIT/15 MINUTE INH ONE (11:24)
[2017-05-08] MEDS ORDERED: ePHEDrine 50 MG/ML AMP ONE (11:25)
[2017-05-08] MEDS ORDERED: MIDAZOLAM 10 MG/2 ML VIAL ONE (11:25)
[2017-05-08] MEDS ORDERED: SUFentanil 250 MCG/5 ML AMP ONE ×2 (11:25)
[2017-05-08] MEDS ORDERED: SODIUM CHLORIDE 0.9% 250 ML IV ONE (11:26)
[2017-05-08] MEDS ORDERED: LACTATED RINGERS 1,000 ML IV ONE (11:26)
[2017-05-08] MEDS ORDERED: SODIUM CHLORIDE 0.9% 2,000 ML IV ONE (11:26)
[2017-05-08] MEDS ORDERED: NITROPRUSSIDE 100 MG in DEXTROSE 5% 250 ML IV PRN (11:28)
[2017-05-08] MEDS ORDERED: PHENYLEPHRINE DRIP 40 MG/250 ML PREMIX IV PRN (11:28)
[2017-05-08] MEDS ORDERED: INSULIN REGULAR 100 UNIT/ML IV PRN (11:28)
[2017-05-08] MEDS ORDERED: CALCIUM CHLORIDE 1,000 MG/10 ML SYRINGE IV PRN (11:28)
[2017-05-08] MEDS ORDERED: ONDANSETRON 4 MG/2 ML VIAL IV PRN (11:28)
[2017-05-08] MEDS ORDERED: FUROSEMIDE 100 MG/10 ML VIAL IV ONE (11:28)
[2017-05-08] MEDS ORDERED: LACTATED RINGERS 250 ML IV PRN (11:28)
[2017-05-08] MEDS ORDERED: MAGNESIUM SULF RIDER 4 GM in PREMIX 1 EACH IV PRN (11:28)
[2017-05-08] MEDS ORDERED: ALBUMIN 5% 12.5 GM in PREMIX 1 EACH IV PRN (11:28)
[2017-05-08] MEDS ORDERED: MORPHINE 10 MG/1 ML VIAL IV PRN (11:28)
[2017-05-08] MEDS ORDERED: POTASSIUM CHLORIDE RIDER 10 MEQ in PREMIX 1 EACH IV PRN (11:28)
[2017-05-08] MEDS ORDERED: POTASSIUM CHLORIDE RIDER 20 MEQ in PREMIX 1 EACH IV PRN (11:28)
[2017-05-08] MEDS ORDERED: VECURONIUM 10 MG VIAL IV PRN ×2 (11:28)
[2017-05-08] MEDS ORDERED: INSULIN REGULAR 100 UNIT/ML IV ONE (11:28)
[2017-05-08] MEDS ORDERED: DEXTROSE 50% 25 GM/50 ML VIAL IV PRN ×2 (11:28)
[2017-05-08] MEDS ORDERED: MAGNESIUM SULF RIDER 2 GM in PREMIX 1 EACH IV PRN (11:28)
[2017-05-08] MEDS ORDERED: MIDAZOLAM 2 MG/2 ML VIAL IV PRN (11:28)
[2017-05-08] MEDS ORDERED: ACETAMINOPHEN 650 MG SUPP RECTAL PRN (11:28)
[2017-05-08 11:33] LABS: ABG Base Excess -3.6 MMOL/L (-2.5-2.5); ABG HCO3 21.4 MMOL/L (20-26); ABG PCO2 38.7 MM HG (35-48); ABG PH 7.354 (7.35-7.45); ABG TCO2 19.9 MMOL/L (23-27); Glucose Heart Surgery 267 MG/DL (74-106); Hematocrit Heart Surgery 28.3 PERCENT (42-52); Hemoglobin Heart Surgery 9.1 G/DL (14.0-18.0); Potassium Heart/CVR 4.5 MMOL/L (3.5-5.1)
[2017-05-08 11:35] LABS: Basophils # 0.1 10*3/uL (0.0-0.2); Basophils % 0.6 % (0.0-0.8); Eosinophils # 0.2 10*3/uL (0.0-0.87); Eosinophils % 1.1 % (0.00-10.9); Hematocrit 28.2 VOL% (42.0-52.0); Hemoglobin 9.6 GM/DL (14.0-18.0); Immature Granulocytes % 0.9 %; Immature Granulocytes Absolute 0.12 #; Lymphocytes # 1.6 10*3/uL (1.4-4.0); Lymphocytes % 11.7 % (21.2-54.2); Mean Corpuscular Hemoglobin 32 PG (27-34); Mean Corpuscular Volume 93.1 FL (87-102); Mean Platelet Volume 11.1 FL (9.6-12.0); Monocytes # 0.5 10*3/uL (0.11-0.8); Monocytes % 3.2 % (1.7-12.7); Neutrophils # 11.4 10*3/uL (1.4-7.4); Neutrophils % 82.5 % (38.7-73.9); Platelet Count 241 T/CUMM (130-400); Red Blood Count 3.03 MC/CUMM (3.8-5.5); Red Cell Distribution Width 14.4 % (9.3-17.3); White Blood Count 13.9 T/CUMM (4-12)
[2017-05-08 11:40] LABS: INR 1.1; PT Patient Result 11.3 SECS
[2017-05-08] MEDS: INSULIN REGULAR DRIP 100 ML IV SCH ×2 (11:57→22:07)
[2017-05-08] MEDS: SODIUM CHLORIDE 0.45% 1,000 ML IV SCH ×2 (12:01→12:51)
[2017-05-08] MEDS: PANTOPRAZOLE 40 MG TABLET PO SCH (12:03)
[2017-05-08] MEDS: CHLORHEXIDINE 0.12% ORAL RINSE 60 ML BOTTLE SWISH/SPIT SCH ×2 (12:03→22:06)
[2017-05-08] MEDS: POLYETHYLENE GLYCOL POWDER 17 GM PACK PO SCH (12:04)
[2017-05-08] MEDS: GABAPENTIN 300 MG CAPSULE PO SCH (12:04)
[2017-05-08] MEDS: ISOSORBIDE MONONITRATE 30 MG TABLET PO SCH (12:05)
[2017-05-08] MEDS: ENOXAPARIN 30 MG/0.3 ML SYRINGE SUBCUT SCH (12:05)
[2017-05-08] MEDS: INSULIN GLARGINE 100 UNIT/ML SUBCUT SCH (12:05)
[2017-05-08] MEDS: FUROSEMIDE 40 MG TABLET PO SCH (12:05)
[2017-05-08] MEDS: ASPIRIN EC 81 MG TABLET PO SCH (12:06)
[2017-05-08] MEDS: SODIUM CHLORIDE 0.9% 1,000 ML IV SCH (12:06)
[2017-05-08] MEDS: FUROSEMIDE INJ 100 MG in SODIUM CHLORIDE 0.9% 90 ML IV SCH ×3 (12:54→22:01)
[2017-05-08 13:16] LABS: ABG Base Excess -4.3 MMOL/L (-2.5-2.5); ABG HCO3 20.9 MMOL/L (20-26); ABG Oxygen Saturation 99.5 % (95-100); ABG PH 7.348 (7.35-7.45); ABG TCO2 18.6 MMOL/L (23-27); Glucose Heart Surgery 269 MG/DL (74-106); Hematocrit Heart Surgery 36.6 PERCENT (42-52); Hemoglobin Heart Surgery 11.9 G/DL (14.0-18.0); Potassium Heart/CVR 4.1 MMOL/L (3.5-5.1)
[2017-05-08 13:17] LABS: VBG Base Excess -3.5 MEQ/L (0-4); VBG HCO3 22.2 MEQ/L (24-28); VBG Oxygen Saturation 75.3 %; VBG PCO2 42.8 MMHG (41-51); VBG PH 7.333
[2017-05-08 14:15] LABS: Albumin 2.7 G/DL (3.4-5.0); Magnesium 2.3 MG/DL (1.8-2.4); Osmolality,Calculated 301.4 MOS/KG (273-304); Potassium 4.7 MMOL/L (3.5-5.1); Total Protein 5.4 G/DL (6.4-8.3)
[2017-05-08 14:16] LABS: CKMB % 7.9 %
[2017-05-08 14:18] LABS: Troponin I Only 2.15 NG/ML (0.00-0.045)
[2017-05-08 15:21] LABS: ABG Base Excess -4.5 MMOL/L (-2.5-2.5); ABG HCO3 20.7 MMOL/L (20-26); ABG Oxygen Saturation 99.3 % (95-100); ABG PCO2 38.2 MM HG (35-48); ABG PH 7.344 (7.35-7.45); ABG TCO2 18.9 MMOL/L (23-27); Glucose Heart Surgery 239 MG/DL (74-106); Hematocrit Heart Surgery 32.5 PERCENT (42-52); Hemoglobin Heart Surgery 10.5 G/DL (14.0-18.0); Potassium Heart/CVR 4.3 MMOL/L (3.5-5.1)
[2017-05-08 16:36] LABS: ABG Base Excess -5.4 MMOL/L (-2.5-2.5); ABG Oxygen Saturation 98.6 % (95-100); ABG PCO2 43.4 MM HG (35-48); ABG PH 7.293 (7.35-7.45); ABG TCO2 19.1 MMOL/L (23-27)
[2017-05-08] MEDS: METOPROLOL TARTRATE 50 MG TABLET PO SCH (17:54)
[2017-05-08 19:40] LABS: ABG Base Excess -4.3 MMOL/L (-2.5-2.5); ABG Oxygen Saturation 97.7 % (95-100); ABG PCO2 39.3 MM HG (35-48); ABG PH 7.345 (7.35-7.45); ABG PO2 107.9 MM HG (80-95); ABG TCO2 22.2 MMOL/L (23-27); Glucose Heart Surgery 182 MG/DL (74-106); Hemoglobin Heart Surgery 12.7 G/DL (14.0-18.0); Potassium Heart/CVR 4.5 MMOL/L (3.5-5.1)
[2017-05-08] MEDS: CEFUROXIME INJ 1,500 MG in SODIUM CHLORIDE 0.9% 50 ML IV SCH (19:53)
[2017-05-08 20:23] LABS: CKMB % 6.3 %
[2017-05-08 20:25] LABS: Troponin I Only 4.44 NG/ML (0.00-0.045)
[2017-05-08] MEDS: MIDAZOLAM 10 MG/2 ML VIAL IV PRN (23:20)
[2017-05-09] MEDS: MORPHINE 2 MG/1 ML SYRINGE IV PRN ×5 (00:58→17:17)
[2017-05-09] MEDS: MIDAZOLAM 10 MG/2 ML VIAL IV PRN (02:07)
[2017-05-09] MEDS: FUROSEMIDE INJ 100 MG in SODIUM CHLORIDE 0.9% 90 ML IV SCH ×3 (03:04→14:05)
[2017-05-09 04:07] LABS: ABG Base Excess -3.8 MMOL/L (-2.5-2.5); ABG HCO3 22.1 MMOL/L (20-26); ABG Oxygen Saturation 98.2 % (95-100); ABG PCO2 43.4 MM HG (35-48); ABG PH 7.325 (7.35-7.45); ABG PO2 120.3 MM HG (80-95); ABG TCO2 23.4 MMOL/L (23-27); Glucose Heart Surgery 120 MG/DL (74-106); Hemoglobin Heart Surgery 12.4 G/DL (14.0-18.0); Potassium Heart/CVR 4.6 MMOL/L (3.5-5.1)
[2017-05-09 04:13] LABS: Basophils % 0.2 % (0.0-0.8); Hematocrit 32.2 VOL% (42.0-52.0); Hemoglobin 10.9 GM/DL (14.0-18.0); Immature Granulocytes % 0.7 %; Immature Granulocytes Absolute 0.12 #; Lymphocytes # 1.1 10*3/uL (1.4-4.0); Mean Corpuscular HGB Conc 33.9 GM/DL (32-36); Mean Corpuscular Hemoglobin 31 PG (27-34); Mean Corpuscular Volume 92.8 FL (87-102); Mean Platelet Volume 11.2 FL (9.6-12.0); Monocytes # 0.6 10*3/uL (0.11-0.8); Monocytes % 3.5 % (1.7-12.7); Neutrophils # 15.9 10*3/uL (1.4-7.4); Neutrophils % 89.6 % (38.7-73.9); Platelet Count 248 T/CUMM (130-400); Red Blood Count 3.47 MC/CUMM (3.8-5.5); Red Cell Distribution Width 15.3 % (9.3-17.3); White Blood Count 17.8 T/CUMM (4-12)
[2017-05-09 04:31] LABS: Albumin 2.9 G/DL (3.4-5.0); Bilirubin,Direct 0.22 MG/DL (0.0-0.20); Bilirubin,Total 0.7 MG/DL (0.2-1.0); Calcium 8.1 MG/DL (8.5-10.1); Magnesium 2.4 MG/DL (1.8-2.4); Osmolality,Calculated 299.1 MOS/KG (273-304); Potassium 4.7 MMOL/L (3.5-5.1); Total Protein 5.9 G/DL (6.4-8.3)
[2017-05-09 04:46] LABS: CKMB % 6.5 %
[2017-05-09 04:50] LABS: Troponin I Only 8.12 NG/ML (0.00-0.045)
[2017-05-09] MEDS ORDERED: PROPOFOL 1,000 MG/100 ML BOTTLE IV ONE (05:08)
[2017-05-09] MEDS: PROPOFOL 1,000 MG/100 ML BOTTLE IV SCH ×2 (05:31→12:08)
[2017-05-09] MEDS: CEFUROXIME INJ 1,500 MG in SODIUM CHLORIDE 0.9% 50 ML IV SCH ×2 (06:43→18:30)
[2017-05-09 08:25] LABS: ABG Base Excess -4.2 MMOL/L (-2.5-2.5); ABG HCO3 20.9 MMOL/L (20-26); ABG Oxygen Saturation 98.8 % (95-100); ABG PCO2 38.8 MM HG (35-48); ABG PH 7.343 (7.35-7.45); ABG TCO2 19.1 MMOL/L (23-27); Glucose Heart Surgery 127 MG/DL (74-106); Hematocrit Heart Surgery 32.7 PERCENT (42-52); Hemoglobin Heart Surgery 10.6 G/DL (14.0-18.0); Potassium Heart/CVR 4.6 MMOL/L (3.5-5.1)
[2017-05-09] MEDS: CHLORHEXIDINE 0.12% ORAL RINSE 60 ML BOTTLE SWISH/SPIT SCH ×2 (08:42→23:20)
[2017-05-09] MEDS: NITROGLYCERIN DRIP 50 MG/250 ML BOTTLE IV SCH (10:12)
[2017-05-09 11:45] LABS: ABG Base Excess -4.4 MMOL/L (-2.5-2.5); ABG HCO3 21.5 MMOL/L (20-26); ABG Oxygen Saturation 98.5 % (95-100); ABG PCO2 42.3 MM HG (35-48); ABG PH 7.323 (7.35-7.45); ABG TCO2 22.8 MMOL/L (23-27); Glucose Heart Surgery 132 MG/DL (74-106); Hemoglobin Heart Surgery 11.2 G/DL (14.0-18.0); Potassium Heart/CVR 4.8 MMOL/L (3.5-5.1)
[2017-05-09 13:03] LABS: ABG Base Excess -4.5 MMOL/L (-2.5-2.5); ABG HCO3 20.4 MMOL/L (20-26); ABG Oxygen Saturation 98.4 % (95-100); ABG PCO2 36.9 MM HG (35-48); ABG PH 7.361 (7.35-7.45); ABG PO2 128.4 MM HG (80-95); ABG TCO2 21.6 MMOL/L (23-27); Glucose Heart Surgery 132 MG/DL (74-106); Hemoglobin Heart Surgery 10.8 G/DL (14.0-18.0); Potassium Heart/CVR 4.6 MMOL/L (3.5-5.1)
[2017-05-09] MEDS: INSULIN REGULAR DRIP 100 ML IV SCH (14:30)
[2017-05-09] MEDS ORDERED: INSULIN REGULAR 100 UNIT/ML SUBCUT SCH (14:30)
[2017-05-09] MEDS: ASPIRIN EC 81 MG TABLET PO SCH (14:51)
[2017-05-09] MEDS: SODIUM CHLORIDE 0.45% 1,000 ML IV SCH ×2 (14:55→14:56)
[2017-05-09] MEDS ORDERED: DEXTROSE 50% 25 GM/50 ML VIAL IV PRN (15:00)
[2017-05-09] MEDS ORDERED: GLUCAGON 1 MG VIAL IM PRN (15:00)
[2017-05-09] MEDS: TAMSULOSIN 0.4 MG CAPSULE PO SCH (15:35)
[2017-05-09] MEDS: INSULIN REGULAR 100 UNIT/ML SUBCUT SCH ×2 (16:58→23:08)
[2017-05-09] MEDS: ROSUVASTATIN 20 MG TABLET PO SCH (23:08)
[2017-05-10] MEDS: FUROSEMIDE INJ 100 MG in SODIUM CHLORIDE 0.9% 90 ML IV SCH ×2 (00:11→08:35)
[2017-05-10] MEDS: INSULIN REGULAR 100 UNIT/ML SUBCUT SCH ×6 (01:17→21:37)
[2017-05-10] MEDS: MORPHINE 2 MG/1 ML SYRINGE IV PRN ×4 (04:19→18:33)
[2017-05-10] MEDS ORDERED: HEPARIN/NACL 0.9% 2 UNITS/ML 500 ML IV ONE (05:22)
[2017-05-10 05:43] LABS: Basophils % 0.2 % (0.0-0.8); Eosinophils % 0.1 % (0.00-10.9); Hematocrit 27.4 VOL% (42.0-52.0); Hemoglobin 9.2 GM/DL (14.0-18.0); Immature Granulocytes % 0.6 %; Immature Granulocytes Absolute 0.12 #; Lymphocytes # 1.6 10*3/uL (1.4-4.0); Lymphocytes % 8.4 % (21.2-54.2); Mean Corpuscular HGB Conc 33.6 GM/DL (32-36); Mean Corpuscular Hemoglobin 32 PG (27-34); Mean Corpuscular Volume 94.8 FL (87-102); Mean Platelet Volume 11.4 FL (9.6-12.0); Monocytes # 1.4 10*3/uL (0.11-0.8); Monocytes % 7.5 % (1.7-12.7); Neutrophils # 15.6 10*3/uL (1.4-7.4); Neutrophils % 83.2 % (38.7-73.9); Platelet Count 221 T/CUMM (130-400); Red Blood Count 2.89 MC/CUMM (3.8-5.5); Red Cell Distribution Width 14.9 % (9.3-17.3); White Blood Count 18.7 T/CUMM (4-12)
[2017-05-10 06:06] LABS: Albumin 2.7 G/DL (3.4-5.0); Bilirubin,Direct 0.29 MG/DL (0.0-0.20); Bilirubin,Total 1.1 MG/DL (0.2-1.0); Calcium 8.1 MG/DL (8.5-10.1); Magnesium 2.2 MG/DL (1.8-2.4); Osmolality,Calculated 305.7 MOS/KG (273-304); Potassium 4.7 MMOL/L (3.5-5.1); Total Protein 5.7 G/DL (6.4-8.3)
[2017-05-10] MEDS: NITROGLYCERIN DRIP 50 MG/250 ML BOTTLE IV SCH ×2 (07:28→11:07)
[2017-05-10] MEDS: ASPIRIN EC 81 MG TABLET PO SCH (08:04)
[2017-05-10] MEDS: TAMSULOSIN 0.4 MG CAPSULE PO SCH (08:04)
[2017-05-10] MEDS: CHLORHEXIDINE 0.12% ORAL RINSE 60 ML BOTTLE SWISH/SPIT SCH ×2 (08:07→21:30)
[2017-05-10] MEDS: SODIUM CHLORIDE 0.45% 1,000 ML IV SCH ×2 (12:14→12:21)
[2017-05-10] MEDS: FUROSEMIDE 40 MG/4 ML VIAL IV SCH (16:02)
[2017-05-10] MEDS: ROSUVASTATIN 20 MG TABLET PO SCH (21:29)
[2017-05-10] MEDS: INSULIN GLARGINE 100 UNIT/ML SUBCUT SCH (21:30)
[2017-05-10] MEDS ORDERED: HALOPERIDOL 5 MG/ML AMP IM PRN (21:46)
[2017-05-10] MEDS ORDERED: CLORAZEPATE 3.75 MG TABLET PO PRN (21:47)
[2017-05-11] MEDS: INSULIN REGULAR 100 UNIT/ML SUBCUT SCH ×6 (00:41→20:28)
[2017-05-11] MEDS ORDERED: AMIODARONE INJ 150 MG in DEXTROSE 5% 100 ML IV ONE (01:55)
[2017-05-11] MEDS ORDERED: AMIODARONE 150 MG/3 ML VIAL ONE (01:56)
[2017-05-11] MEDS ORDERED: DILTIAZEM 50 MG/10 ML VIAL IV ONE ×3 (01:56→18:19)
[2017-05-11] MEDS ORDERED: DILTIAZEM INJ 100 MG in SODIUM CHLORIDE 0.9% 100 ML IV SCH ×2 (02:00→18:30)
[2017-05-11] MEDS ORDERED: AMIODARONE INJ 450 MG in DEXTROSE 5% 241 ML IV SCH (02:00)
[2017-05-11] MEDS ORDERED: DILTIAZEM 100 MG VIAL.ADD IV ONE (02:02)
[2017-05-11] MEDS ORDERED: SODIUM CHLORIDE 0.9% 100 ML IV ONE (02:02)
[2017-05-11 02:13] LABS: Basophils % 0.2 % (0.0-0.8); Eosinophils % 0.1 % (0.00-10.9); Hematocrit 27.4 VOL% (42.0-52.0); Hemoglobin 9.5 GM/DL (14.0-18.0); Immature Granulocytes % 1.2 %; Immature Granulocytes Absolute 0.15 #; Lymphocytes # 1.1 10*3/uL (1.4-4.0); Lymphocytes % 8.7 % (21.2-54.2); Mean Corpuscular HGB Conc 34.7 GM/DL (32-36); Mean Corpuscular Hemoglobin 32 PG (27-34); Mean Corpuscular Volume 92.6 FL (87-102); Mean Platelet Volume 11.7 FL (9.6-12.0); Monocytes # 1.1 10*3/uL (0.11-0.8); Monocytes % 8.1 % (1.7-12.7); Neutrophils # 10.7 10*3/uL (1.4-7.4); Neutrophils % 81.7 % (38.7-73.9); Platelet Count 212 T/CUMM (130-400); Red Blood Count 2.96 MC/CUMM (3.8-5.5); Red Cell Distribution Width 14.6 % (9.3-17.3)
[2017-05-11 02:57] LABS: Albumin 2.9 G/DL (3.4-5.0); Bilirubin,Direct 0.35 MG/DL (0.0-0.20); Bilirubin,Total 0.8 MG/DL (0.2-1.0); Calcium 7.9 MG/DL (8.5-10.1); Magnesium 2.5 MG/DL (1.8-2.4); Osmolality,Calculated 300.8 MOS/KG (273-304); Potassium 4.3 MMOL/L (3.5-5.1)
[2017-05-11] MEDS ORDERED: HALOPERIDOL 5 MG/ML AMP IM PRN ×2 (08:06→08:16)
[2017-05-11] MEDS ORDERED: HALOPERIDOL 5 MG/ML AMP IV PRN (08:30)
[2017-05-11] MEDS ORDERED: DILTIAZEM CD 120 MG CAPSULE PO SCH (09:00)
[2017-05-11] MEDS: ASPIRIN EC 81 MG TABLET PO SCH ×2 (09:39→10:03)
[2017-05-11] MEDS: TAMSULOSIN 0.4 MG CAPSULE PO SCH ×2 (09:39→10:03)
[2017-05-11] MEDS: INSULIN GLARGINE 100 UNIT/ML SUBCUT SCH ×2 (09:42→21:44)
[2017-05-11] MEDS: FUROSEMIDE 40 MG/4 ML VIAL IV SCH ×2 (09:42)
[2017-05-11] MEDS: CHLORHEXIDINE 0.12% ORAL RINSE 60 ML BOTTLE SWISH/SPIT SCH ×2 (09:43→20:18)
[2017-05-11] MEDS: NITROGLYCERIN DRIP 50 MG/250 ML BOTTLE IV SCH (10:08)
[2017-05-11] MEDS ORDERED: PIPERACILLIN/TAZOBACTAM 3,375 MG in SODIUM CHLORIDE 0.9% 100 ML IV SCH (10:30)
[2017-05-11 10:45] LABS: Apearance,Urine Slightly Hazy (Clear); Bacteria,Urine Occasional /HPF (Few); Bilirubin,Urine Negative (Negative); Blood, Urine Moderate mg/dL (Negative); Glucose,Urine (UA) 50 mg/dL (Negative); Ketones,Urine Negative (Negative); Mucus,Urine Occasional /LPF (Occasional); Nitrite,Urine Negative (Negative); Protein,Urine 100 MG/DL; RBC,Urine 2 /HPF (0-4); Squamous Epithelial Cell,Urine Occasional /HPF (0-10); Urine Color Yellow (Yellow); Urine Urobilinogen < 2.0 EU/DL (0.2-1.0); WBC,Urine 3 /HPF (0-6)
[2017-05-11] MEDS: AMIODARONE INJ 450 MG in DEXTROSE 5% 241 ML IV SCH (11:49)
[2017-05-11] MEDS: traMADol 50 MG TABLET PO PRN ×2 (11:53→20:16)
[2017-05-11] MEDS: ENOXAPARIN 30 MG/0.3 ML SYRINGE SUBCUT SCH (11:55)
[2017-05-11] MEDS: SODIUM CHLORIDE 0.9% 1,000 ML IV SCH (13:26)
[2017-05-11] MEDS: SODIUM CHLORIDE 0.45% 1,000 ML IV SCH ×2 (13:34→14:54)
[2017-05-11] MEDS: ROSUVASTATIN 20 MG TABLET PO SCH (20:16)
[2017-05-12] MEDS: INSULIN REGULAR 100 UNIT/ML SUBCUT SCH ×2 (01:24→05:46)
[2017-05-12 05:21] LABS: Basophils % 0.2 % (0.0-0.8); Eosinophils # 0.1 10*3/uL (0.0-0.87); Eosinophils % 0.9 % (0.00-10.9); Hematocrit 25.7 VOL% (42.0-52.0); Hemoglobin 8.7 GM/DL (14.0-18.0); Immature Granulocytes % 0.9 %; Immature Granulocytes Absolute 0.09 #; Lymphocytes # 1.1 10*3/uL (1.4-4.0); Lymphocytes % 10.8 % (21.2-54.2); Mean Corpuscular HGB Conc 33.9 GM/DL (32-36); Mean Corpuscular Hemoglobin 32 PG (27-34); Mean Corpuscular Volume 93.8 FL (87-102); Mean Platelet Volume 11.1 FL (9.6-12.0); Monocytes # 1.1 10*3/uL (0.11-0.8); Monocytes % 10.4 % (1.7-12.7); Neutrophils # 7.9 10*3/uL (1.4-7.4); Neutrophils % 76.8 % (38.7-73.9); Platelet Count 199 T/CUMM (130-400); Red Blood Count 2.74 MC/CUMM (3.8-5.5); Red Cell Distribution Width 14.6 % (9.3-17.3); White Blood Count 10.2 T/CUMM (4-12)
[2017-05-12] MEDS: AMIODARONE INJ 450 MG in DEXTROSE 5% 241 ML IV SCH (05:39)
[2017-05-12] MEDS: SODIUM CHLORIDE 0.9% 1,000 ML IV SCH (05:40)
[2017-05-12 06:08] LABS: Albumin 2.6 G/DL (3.4-5.0); Bilirubin,Total 0.8 MG/DL (0.2-1.0); Calcium 7.6 MG/DL (8.5-10.1); Calcium 7.9 MG/DL (8.5-10.1); Magnesium 2.4 MG/DL (1.8-2.4); Osmolality,Calculated 295.2 MOS/KG (273-304); Osmolality,Calculated 296.1 MOS/KG (273-304); Total Protein 5.9 G/DL (6.4-8.3)
[2017-05-12] MEDS ORDERED: GLUCAGON 1 MG VIAL IM PRN ×2 (07:31)
[2017-05-12] MEDS ORDERED: ALUMINUM/MAGNES/SIMETH MAX STR 30 ML UDCUP PO PRN (07:31)
[2017-05-12] MEDS ORDERED: ACETAMINOPHEN 325 MG TABLET PO PRN (07:31)
[2017-05-12] MEDS ORDERED: MAGNESIUM SULF RIDER 2 GM in PREMIX 1 EACH IV PRN (07:31)
[2017-05-12] MEDS ORDERED: MAGNESIUM SULF RIDER 4 GM in PREMIX 1 EACH IV PRN (07:31)
[2017-05-12] MEDS ORDERED: DEXTROSE 50% 25 GM/50 ML VIAL IV PRN ×2 (07:31)
[2017-05-12] MEDS ORDERED: ONDANSETRON 4 MG/2 ML VIAL IV PRN (07:31)
[2017-05-12] MEDS ORDERED: POTASSIUM CHLORIDE 20 MEQ TABLET PO PRN (07:31)
[2017-05-12] MEDS ORDERED: DILTIAZEM CD 180 MG CAPSULE PO SCH (09:00)
[2017-05-12] MEDS: TAMSULOSIN 0.4 MG CAPSULE PO SCH (09:32)
[2017-05-12] MEDS: FERROUS SULFATE 325 MG TABLET PO SCH (09:32)
[2017-05-12] MEDS: ASPIRIN EC 81 MG TABLET PO SCH (09:32)
[2017-05-12] MEDS: GABAPENTIN 600 MG TABLET PO SCH ×3 (09:32→21:47)
[2017-05-12] MEDS: AMIODARONE 200 MG TABLET PO SCH ×2 (09:33→21:47)
[2017-05-12] MEDS: DOCUSATE SODIUM 100 MG CAPSULE PO SCH (09:33)
[2017-05-12] MEDS: CARVEDILOL 3.125 MG TABLET PO SCH ×2 (09:33→21:47)
[2017-05-12] MEDS: PANTOPRAZOLE 40 MG TABLET PO SCH (09:33)
[2017-05-12] MEDS: INSULIN GLARGINE 100 UNIT/ML SUBCUT SCH ×2 (09:33→21:46)
[2017-05-12] MEDS: FUROSEMIDE 40 MG/4 ML VIAL IV SCH (09:34)
[2017-05-12] MEDS: SODIUM CHLOR 0.45% KCL 20 MEQ 20 MEQ/1,000 ML BAG IV SCH (09:35)
[2017-05-12] MEDS: CHLORHEXIDINE 0.12% ORAL RINSE 60 ML BOTTLE SWISH/SPIT SCH ×2 (09:35→21:53)
[2017-05-12] MEDS: ENOXAPARIN 30 MG/0.3 ML SYRINGE SUBCUT SCH (10:35)
[2017-05-12] MEDS: ROSUVASTATIN 20 MG TABLET PO SCH (21:47)
[2017-05-13 05:20] LABS: Basophils % 0.2 % (0.0-0.8); Eosinophils # 0.2 10*3/uL (0.0-0.87); Eosinophils % 2.4 % (0.00-10.9); Hematocrit 24.1 VOL% (42.0-52.0); Hemoglobin 7.9 GM/DL (14.0-18.0); Immature Granulocytes % 0.8 %; Immature Granulocytes Absolute 0.08 #; Lymphocytes # 1.1 10*3/uL (1.4-4.0); Lymphocytes % 10.9 % (21.2-54.2); Mean Corpuscular HGB Conc 32.8 GM/DL (32-36); Mean Corpuscular Hemoglobin 31 PG (27-34); Mean Corpuscular Volume 93.1 FL (87-102); Mean Platelet Volume 12.1 FL (9.6-12.0); Monocytes # 0.9 10*3/uL (0.11-0.8); Monocytes % 8.7 % (1.7-12.7); Neutrophils # 7.9 10*3/uL (1.4-7.4); Platelet Count 211 T/CUMM (130-400); Red Blood Count 2.59 MC/CUMM (3.8-5.5); Red Cell Distribution Width 14.5 % (9.3-17.3); White Blood Count 10.2 T/CUMM (4-12)
[2017-05-13 05:54] LABS: Alanine Aminotransferase 31 U/L (16-61); Albumin 2.3 G/DL (3.4-5.0); Alkaline Phosphatase 123 U/L (45-117); Aspartate Amino Transferase 19 U/L (0-37); Bilirubin,Indirect 0.5 MG/DL (0.0-1.0); Blood Urea Nitrogen 86 MG/DL (7-18); Calcium 7.6 MG/DL (8.5-10.1); Glucose 256 MG/DL (74-106); Magnesium 2.5 MG/DL (1.8-2.4); Osmolality,Calculated 302.2 MOS/KG (273-304); Potassium 4.3 MMOL/L (3.5-5.1); Sodium 134 MMOL/L (136-145); Total Protein 5.4 G/DL (6.4-8.3)
[2017-05-13] MEDS ORDERED: SODIUM CHLORIDE 0.9% 250 ML IV PRN (06:30)
[2017-05-13] MEDS: GABAPENTIN 600 MG TABLET PO SCH ×2 (10:22→14:16)
[2017-05-13] MEDS: CARVEDILOL 3.125 MG TABLET PO SCH (10:22)
[2017-05-13] MEDS: TAMSULOSIN 0.4 MG CAPSULE PO SCH (10:22)
[2017-05-13] MEDS: hydrALAZINE 10 MG TABLET PO SCH ×2 (10:22→14:15)
[2017-05-13] MEDS: FERROUS SULFATE 325 MG TABLET PO SCH (10:23)
[2017-05-13] MEDS: AMIODARONE 200 MG TABLET PO SCH ×2 (10:23→22:20)
[2017-05-13] MEDS: PANTOPRAZOLE 40 MG TABLET PO SCH (10:23)
[2017-05-13] MEDS: DOCUSATE SODIUM 100 MG CAPSULE PO SCH (10:23)
[2017-05-13] MEDS: ASPIRIN EC 81 MG TABLET PO SCH (10:24)
[2017-05-13] MEDS: FUROSEMIDE 40 MG/4 ML VIAL IV SCH (10:24)
[2017-05-13] MEDS: INSULIN GLARGINE 100 UNIT/ML SUBCUT SCH ×2 (10:37→22:21)
[2017-05-13] MEDS ORDERED: GLUCAGON 1 MG VIAL IM PRN (13:15)
[2017-05-13] MEDS ORDERED: DEXTROSE 50% 25 GM/50 ML VIAL IV PRN (13:15)
[2017-05-13] MEDS: ENOXAPARIN 30 MG/0.3 ML SYRINGE SUBCUT SCH (14:15)
[2017-05-13] MEDS ORDERED: INSULIN LISPRO 100 UNIT/ML SUBCUT ONE (14:39)
[2017-05-13] MEDS ORDERED: INSULIN REGULAR 100 UNIT/ML ONE (14:41)
[2017-05-13] MEDS ORDERED: GABAPENTIN 600 MG TABLET PO PRN (15:30)
[2017-05-13] MEDS: INSULIN REGULAR 100 UNIT/ML SUBCUT SCH ×2 (15:31→22:22)
[2017-05-13] MEDS ORDERED: FUROSEMIDE 40 MG/4 ML VIAL IV ONE (17:43)
[2017-05-13 18:43] LABS: Calcium 7.8 MG/DL (8.5-10.1); Osmolality,Calculated 305.4 MOS/KG (273-304); Potassium 4.5 MMOL/L (3.5-5.1)
[2017-05-13] MEDS: ROSUVASTATIN 20 MG TABLET PO SCH (22:20)
[2017-05-13] MEDS: CHLORHEXIDINE 0.12% ORAL RINSE 60 ML BOTTLE SWISH/SPIT SCH (22:22)
[2017-05-13] MEDS: ZINC OXIDE PASTE 113 GM TUBE TOP SCH (22:22)
[2017-05-14 05:08] LABS: Basophils % 0.2 % (0.0-0.8); Eosinophils # 0.4 10*3/uL (0.0-0.87); Eosinophils % 3.9 % (0.00-10.9); Hemoglobin 9.4 GM/DL (14.0-18.0); Immature Granulocytes % 0.7 %; Immature Granulocytes Absolute 0.07 #; Lymphocytes # 1.3 10*3/uL (1.4-4.0); Lymphocytes % 12.8 % (21.2-54.2); Mean Corpuscular HGB Conc 33.6 GM/DL (32-36); Mean Corpuscular Hemoglobin 31 PG (27-34); Mean Corpuscular Volume 92.4 FL (87-102); Mean Platelet Volume 11.6 FL (9.6-12.0); Monocytes # 0.9 10*3/uL (0.11-0.8); Monocytes % 9.6 % (1.7-12.7); Neutrophils # 7.1 10*3/uL (1.4-7.4); Neutrophils % 72.8 % (38.7-73.9); Platelet Count 239 T/CUMM (130-400); Red Blood Count 3.03 MC/CUMM (3.8-5.5); Red Cell Distribution Width 14.6 % (9.3-17.3); White Blood Count 9.8 T/CUMM (4-12)
[2017-05-14 05:50] LABS: Albumin 2.3 G/DL (3.4-5.0); Bilirubin,Direct 0.32 MG/DL (0.0-0.20); Bilirubin,Indirect 0.3 MG/DL (0.0-1.0); Bilirubin,Total 0.6 MG/DL (0.2-1.0); CKMB % 0.7 %; Calcium 7.7 MG/DL (8.5-10.1); Magnesium 2.6 MG/DL (1.8-2.4); Potassium 4.3 MMOL/L (3.5-5.1); Total Protein 5.7 G/DL (6.4-8.3)
[2017-05-14 05:54] LABS: Troponin I Only 1.11 NG/ML (0.00-0.045)
[2017-05-14] MEDS: PANTOPRAZOLE 40 MG TABLET PO SCH (09:47)
[2017-05-14] MEDS: TAMSULOSIN 0.4 MG CAPSULE PO SCH (09:47)
[2017-05-14] MEDS: INSULIN GLARGINE 100 UNIT/ML SUBCUT SCH ×2 (09:47→21:40)
[2017-05-14] MEDS: ASPIRIN EC 81 MG TABLET PO SCH (09:47)
[2017-05-14] MEDS: AMIODARONE 200 MG TABLET PO SCH ×2 (09:47→21:41)
[2017-05-14] MEDS: DOCUSATE SODIUM 100 MG CAPSULE PO SCH (09:47)
[2017-05-14] MEDS: INSULIN REGULAR 100 UNIT/ML SUBCUT SCH ×4 (09:47→21:40)
[2017-05-14] MEDS: FERROUS SULFATE 325 MG TABLET PO SCH (09:47)
[2017-05-14] MEDS: ENOXAPARIN 30 MG/0.3 ML SYRINGE SUBCUT SCH (09:48)
[2017-05-14] MEDS: FUROSEMIDE 40 MG/4 ML VIAL IV SCH (09:48)
[2017-05-14] MEDS: CHLORHEXIDINE 0.12% ORAL RINSE 60 ML BOTTLE SWISH/SPIT SCH ×3 (10:04→23:22)
[2017-05-14] MEDS: ZINC OXIDE PASTE 113 GM TUBE TOP SCH ×4 (10:09→23:23)
[2017-05-14] MEDS ORDERED: CEFEPIME 1,000 MG in SODIUM CHLORIDE 0.9% 50 ML IV SCH (13:00)
[2017-05-14] MEDS: ROSUVASTATIN 20 MG TABLET PO SCH (21:41)
[2017-05-14] MEDS: SODIUM CHLOR 0.45% KCL 20 MEQ 20 MEQ/1,000 ML BAG IV SCH (23:24)
[2017-05-15 05:53] LABS: Basophils # 0.1 10*3/uL (0.0-0.2); Basophils % 0.5 % (0.0-0.8); Eosinophils # 0.4 10*3/uL (0.0-0.87); Eosinophils % 3.4 % (0.00-10.9); Hematocrit 28.5 VOL% (42.0-52.0); Hemoglobin 9.5 GM/DL (14.0-18.0); Immature Granulocytes % 0.8 %; Immature Granulocytes Absolute 0.08 #; Lymphocytes # 1.4 10*3/uL (1.4-4.0); Lymphocytes % 12.7 % (21.2-54.2); Mean Corpuscular HGB Conc 33.3 GM/DL (32-36); Mean Corpuscular Hemoglobin 31 PG (27-34); Mean Corpuscular Volume 92.5 FL (87-102); Mean Platelet Volume 11.9 FL (9.6-12.0); Monocytes # 0.9 10*3/uL (0.11-0.8); Monocytes % 8.8 % (1.7-12.7); Neutrophils # 7.9 10*3/uL (1.4-7.4); Neutrophils % 73.8 % (38.7-73.9); Platelet Count 278 T/CUMM (130-400); Red Blood Count 3.08 MC/CUMM (3.8-5.5); Red Cell Distribution Width 14.1 % (9.3-17.3); White Blood Count 10.7 T/CUMM (4-12)
[2017-05-15 06:32] LABS: Albumin 2.2 G/DL (3.4-5.0); Bilirubin,Total 0.6 MG/DL (0.2-1.0); Calcium 7.5 MG/DL (8.5-10.1); Osmolality,Calculated 302.7 MOS/KG (273-304); Potassium 4.2 MMOL/L (3.5-5.1); Total Protein 5.6 G/DL (6.4-8.3)
[2017-05-15] MEDS: INSULIN REGULAR 100 UNIT/ML SUBCUT SCH ×4 (07:47→21:42)
[2017-05-15] MEDS: FERROUS SULFATE 325 MG TABLET PO SCH (10:34)
[2017-05-15] MEDS: DOCUSATE SODIUM 100 MG CAPSULE PO SCH (10:34)
[2017-05-15] MEDS: ASPIRIN EC 81 MG TABLET PO SCH (10:34)
[2017-05-15] MEDS: PANTOPRAZOLE 40 MG TABLET PO SCH (10:34)
[2017-05-15] MEDS: TAMSULOSIN 0.4 MG CAPSULE PO SCH (10:35)
[2017-05-15] MEDS: CHLORHEXIDINE 0.12% ORAL RINSE 60 ML BOTTLE SWISH/SPIT SCH ×2 (10:35→21:30)
[2017-05-15] MEDS: ENOXAPARIN 30 MG/0.3 ML SYRINGE SUBCUT SCH (10:35)
[2017-05-15] MEDS: ZINC OXIDE PASTE 113 GM TUBE TOP SCH ×2 (10:35→21:30)
[2017-05-15] MEDS: AMIODARONE 200 MG TABLET PO SCH ×2 (10:35→21:30)
[2017-05-15] MEDS: FUROSEMIDE 40 MG/4 ML VIAL IV SCH (10:35)
[2017-05-15] MEDS: INSULIN GLARGINE 100 UNIT/ML SUBCUT SCH ×2 (10:41→21:29)
[2017-05-15] MEDS: POLYETHYLENE GLYCOL POWDER 17 GM PACK PO SCH (17:07)
[2017-05-15] MEDS: EZETIMIBE 10 MG TABLET PO SCH (21:30)
[2017-05-16 06:02] LABS: Basophils # 0.1 10*3/uL (0.0-0.2); Basophils % 0.5 % (0.0-0.8); Eosinophils # 0.5 10*3/uL (0.0-0.87); Hematocrit 29.2 VOL% (42.0-52.0); Hemoglobin 9.9 GM/DL (14.0-18.0); Immature Granulocytes % 0.8 %; Immature Granulocytes Absolute 0.09 #; Lymphocytes # 1.5 10*3/uL (1.4-4.0); Lymphocytes % 13.1 % (21.2-54.2); Mean Corpuscular HGB Conc 33.9 GM/DL (32-36); Mean Corpuscular Hemoglobin 31 PG (27-34); Mean Corpuscular Volume 92.4 FL (87-102); Mean Platelet Volume 10.9 FL (9.6-12.0); Monocytes % 9.2 % (1.7-12.7); Neutrophils # 8.1 10*3/uL (1.4-7.4); Neutrophils % 72.4 % (38.7-73.9); Platelet Count 279 T/CUMM (130-400); Red Blood Count 3.16 MC/CUMM (3.8-5.5); Red Cell Distribution Width 13.9 % (9.3-17.3); White Blood Count 11.2 T/CUMM (4-12)
[2017-05-16 06:15] LABS: Albumin 2.3 G/DL (3.4-5.0); Bilirubin,Total 0.6 MG/DL (0.2-1.0); Magnesium 2.5 MG/DL (1.8-2.4); Osmolality,Calculated 302.5 MOS/KG (273-304); Potassium 4.2 MMOL/L (3.5-5.1); Total Protein 5.7 G/DL (6.4-8.3)
[2017-05-16 06:16] LABS: Alanine Aminotransferase 133 U/L (16-61); Albumin 2.3 G/DL (3.4-5.0); Alkaline Phosphatase 173 U/L (45-117); Aspartate Amino Transferase 95 U/L (0-37); Bilirubin,Indirect 0.4 MG/DL (0.0-1.0); Total Protein 5.8 G/DL (6.4-8.3)
[2017-05-16] MEDS: ZINC OXIDE PASTE 113 GM TUBE TOP SCH ×2 (09:50→21:52)
[2017-05-16] MEDS: TAMSULOSIN 0.4 MG CAPSULE PO SCH (10:21)
[2017-05-16] MEDS: PANTOPRAZOLE 40 MG TABLET PO SCH (10:21)
[2017-05-16] MEDS: POLYETHYLENE GLYCOL POWDER 17 GM PACK PO SCH (10:21)
[2017-05-16] MEDS: DOCUSATE SODIUM 100 MG CAPSULE PO SCH (10:22)
[2017-05-16] MEDS: FERROUS SULFATE 325 MG TABLET PO SCH (10:22)
[2017-05-16] MEDS: AMIODARONE 200 MG TABLET PO SCH ×2 (10:22→21:52)
[2017-05-16] MEDS: ASPIRIN EC 81 MG TABLET PO SCH (10:23)
[2017-05-16] MEDS: FUROSEMIDE 40 MG/4 ML VIAL IV SCH (10:25)
[2017-05-16] MEDS: INSULIN REGULAR 100 UNIT/ML SUBCUT SCH ×4 (10:27→21:51)
[2017-05-16] MEDS: INSULIN GLARGINE 100 UNIT/ML SUBCUT SCH ×2 (10:27→21:49)
[2017-05-16] MEDS: ENOXAPARIN 30 MG/0.3 ML SYRINGE SUBCUT SCH (10:27)
[2017-05-16] MEDS: CHLORHEXIDINE 0.12% ORAL RINSE 60 ML BOTTLE SWISH/SPIT SCH ×2 (10:28→21:53)
[2017-05-16] MEDS: MAGNESIUM HYDROXIDE SUSP 30 ML UDCUP PO PRN (18:10)
[2017-05-16] MEDS: EZETIMIBE 10 MG TABLET PO SCH (21:53)
[2017-05-17 05:51] LABS: Basophils # 0.1 10*3/uL (0.0-0.2); Basophils % 0.5 % (0.0-0.8); Eosinophils # 0.5 10*3/uL (0.0-0.87); Hematocrit 27.9 VOL% (42.0-52.0); Hemoglobin 9.4 GM/DL (14.0-18.0); Immature Granulocytes % 1.1 %; Lymphocytes # 1.4 10*3/uL (1.4-4.0); Lymphocytes % 14.7 % (21.2-54.2); Mean Corpuscular HGB Conc 33.7 GM/DL (32-36); Mean Corpuscular Hemoglobin 31 PG (27-34); Mean Platelet Volume 10.8 FL (9.6-12.0); Monocytes # 0.9 10*3/uL (0.11-0.8); Monocytes % 9.8 % (1.7-12.7); Neutrophils # 6.4 10*3/uL (1.4-7.4); Neutrophils % 68.9 % (38.7-73.9); Platelet Count 269 T/CUMM (130-400); Red Cell Distribution Width 13.6 % (9.3-17.3); White Blood Count 9.3 T/CUMM (4-12)
[2017-05-17 06:48] LABS: Alanine Aminotransferase 184 U/L (16-61); Albumin 2.2 G/DL (3.4-5.0); Alkaline Phosphatase 169 U/L (45-117); Aspartate Amino Transferase 131 U/L (0-37); Bilirubin,Indirect 0.6 MG/DL (0.0-1.0); Blood Urea Nitrogen 77 MG/DL (7-18); Calcium 7.6 MG/DL (8.5-10.1); Glucose 139 MG/DL (74-106); Magnesium 2.7 MG/DL (1.8-2.4); Osmolality,Calculated 301.5 MOS/KG (273-304); Potassium 4.2 MMOL/L (3.5-5.1); Sodium 139 MMOL/L (136-145); Total Protein 5.6 G/DL (6.4-8.3)
[2017-05-17 06:53] LABS: Troponin I Only 0.311 NG/ML (0.00-0.045)
[2017-05-17] MEDS: TAMSULOSIN 0.4 MG CAPSULE PO SCH (09:32)
[2017-05-17] MEDS: ASPIRIN EC 81 MG TABLET PO SCH (09:32)
[2017-05-17] MEDS: DOCUSATE SODIUM 100 MG CAPSULE PO SCH (09:32)
[2017-05-17] MEDS: FERROUS SULFATE 325 MG TABLET PO SCH (09:32)
[2017-05-17] MEDS: FUROSEMIDE 40 MG/4 ML VIAL IV SCH (09:33)
[2017-05-17] MEDS: PANTOPRAZOLE 40 MG TABLET PO SCH (09:33)
[2017-05-17] MEDS: ENOXAPARIN 30 MG/0.3 ML SYRINGE SUBCUT SCH (09:33)
[2017-05-17] MEDS: INSULIN GLARGINE 100 UNIT/ML SUBCUT SCH ×2 (09:34→21:45)
[2017-05-17] MEDS: AMIODARONE 200 MG TABLET PO SCH ×2 (09:36→13:30)
[2017-05-17] MEDS: INSULIN REGULAR 100 UNIT/ML SUBCUT SCH ×4 (09:59→21:46)
[2017-05-17] MEDS: CHLORHEXIDINE 0.12% ORAL RINSE 60 ML BOTTLE SWISH/SPIT SCH ×2 (10:00→21:46)
[2017-05-17] MEDS: POLYETHYLENE GLYCOL POWDER 17 GM PACK PO SCH (10:00)
[2017-05-17] MEDS: ZINC OXIDE PASTE 113 GM TUBE TOP SCH ×2 (10:00→21:45)
[2017-05-17] MEDS: MAGNESIUM HYDROXIDE SUSP 30 ML UDCUP PO PRN (13:46)
[2017-05-17] MEDS: EZETIMIBE 10 MG TABLET PO SCH (21:45)
[2017-05-17] MEDS: ZALEPLON 5 MG CAPSULE PO PRN (21:45)
[2017-05-18 05:33] LABS: Basophils # 0.1 10*3/uL (0.0-0.2); Basophils % 0.5 % (0.0-0.8); Eosinophils # 0.3 10*3/uL (0.0-0.87); Hematocrit 30.1 VOL% (42.0-52.0); Hemoglobin 10.2 GM/DL (14.0-18.0); Immature Granulocytes % 1.3 %; Immature Granulocytes Absolute 0.14 #; Lymphocytes # 1.6 10*3/uL (1.4-4.0); Lymphocytes % 14.6 % (21.2-54.2); Mean Corpuscular HGB Conc 33.9 GM/DL (32-36); Mean Corpuscular Hemoglobin 31 PG (27-34); Mean Corpuscular Volume 91.8 FL (87-102); Mean Platelet Volume 10.9 FL (9.6-12.0); Monocytes # 0.9 10*3/uL (0.11-0.8); Neutrophils % 72.6 % (38.7-73.9); Platelet Count 320 T/CUMM (130-400); Red Blood Count 3.28 MC/CUMM (3.8-5.5); Red Cell Distribution Width 13.6 % (9.3-17.3); White Blood Count 11.1 T/CUMM (4-12)
[2017-05-18 06:09] LABS: Albumin 2.6 G/DL (3.4-5.0); Bilirubin,Total 0.7 MG/DL (0.2-1.0); Calcium 8.3 MG/DL (8.5-10.1); Osmolality,Calculated 299.5 MOS/KG (273-304); Potassium 4.5 MMOL/L (3.5-5.1); Total Protein 6.5 G/DL (6.4-8.3)
[2017-05-18] MEDS: POLYETHYLENE GLYCOL POWDER 17 GM PACK PO SCH (09:53)
[2017-05-18] MEDS: PANTOPRAZOLE 40 MG TABLET PO SCH (09:53)
[2017-05-18] MEDS: DOCUSATE SODIUM 100 MG CAPSULE PO SCH (09:54)
[2017-05-18] MEDS: TAMSULOSIN 0.4 MG CAPSULE PO SCH (09:54)
[2017-05-18] MEDS: ASPIRIN EC 81 MG TABLET PO SCH (09:54)
[2017-05-18] MEDS: AMIODARONE 200 MG TABLET PO SCH (09:55)
[2017-05-18] MEDS: ZINC OXIDE PASTE 113 GM TUBE TOP SCH ×2 (09:55→21:03)
[2017-05-18] MEDS: INSULIN REGULAR 100 UNIT/ML SUBCUT SCH ×4 (09:55→21:01)
[2017-05-18] MEDS: FERROUS SULFATE 325 MG TABLET PO SCH (09:56)
[2017-05-18] MEDS: FUROSEMIDE 40 MG/4 ML VIAL IV SCH (09:56)
[2017-05-18] MEDS: INSULIN GLARGINE 100 UNIT/ML SUBCUT SCH ×2 (09:56→21:01)
[2017-05-18] MEDS: CHLORHEXIDINE 0.12% ORAL RINSE 60 ML BOTTLE SWISH/SPIT SCH ×2 (10:03→21:03)
[2017-05-18] MEDS: ENOXAPARIN 30 MG/0.3 ML SYRINGE SUBCUT SCH (10:04)
[2017-05-18] MEDS: EZETIMIBE 10 MG TABLET PO SCH (21:01)
[2017-05-19 05:16] LABS: Basophils # 0.1 10*3/uL (0.0-0.2); Basophils % 0.6 % (0.0-0.8); Eosinophils # 0.3 10*3/uL (0.0-0.87); Eosinophils % 3.1 % (0.00-10.9); Hematocrit 28.6 VOL% (42.0-52.0); Hemoglobin 9.7 GM/DL (14.0-18.0); Immature Granulocytes % 0.7 %; Immature Granulocytes Absolute 0.08 #; Lymphocytes # 1.7 10*3/uL (1.4-4.0); Lymphocytes % 15.8 % (21.2-54.2); Mean Corpuscular HGB Conc 33.9 GM/DL (32-36); Mean Corpuscular Hemoglobin 31 PG (27-34); Mean Corpuscular Volume 92.3 FL (87-102); Mean Platelet Volume 10.7 FL (9.6-12.0); Monocytes # 0.9 10*3/uL (0.11-0.8); Monocytes % 8.2 % (1.7-12.7); Neutrophils # 7.7 10*3/uL (1.4-7.4); Neutrophils % 71.6 % (38.7-73.9); Platelet Count 310 T/CUMM (130-400); Red Cell Distribution Width 13.7 % (9.3-17.3); White Blood Count 10.8 T/CUMM (4-12)
[2017-05-19 05:46] LABS: Albumin 2.6 G/DL (3.4-5.0); Bilirubin,Total 0.7 MG/DL (0.2-1.0); Osmolality,Calculated 301.3 MOS/KG (273-304); Potassium 4.3 MMOL/L (3.5-5.1); Total Protein 6.3 G/DL (6.4-8.3)
[2017-05-19] MEDS: INSULIN REGULAR 100 UNIT/ML SUBCUT SCH ×4 (08:14→21:21)
[2017-05-19] MEDS: TAMSULOSIN 0.4 MG CAPSULE PO SCH (09:33)
[2017-05-19] MEDS: ASPIRIN EC 81 MG TABLET PO SCH (09:33)
[2017-05-19] MEDS: FERROUS SULFATE 325 MG TABLET PO SCH (09:33)
[2017-05-19] MEDS: DOCUSATE SODIUM 100 MG CAPSULE PO SCH (09:33)
[2017-05-19] MEDS: FUROSEMIDE 40 MG/4 ML VIAL IV SCH (09:34)
[2017-05-19] MEDS: ZINC OXIDE PASTE 113 GM TUBE TOP SCH ×2 (09:34→21:24)
[2017-05-19] MEDS: POLYETHYLENE GLYCOL POWDER 17 GM PACK PO SCH (09:34)
[2017-05-19] MEDS: ENOXAPARIN 30 MG/0.3 ML SYRINGE SUBCUT SCH (09:34)
[2017-05-19] MEDS: AMIODARONE 200 MG TABLET PO SCH (09:34)
[2017-05-19] MEDS: CHLORHEXIDINE 0.12% ORAL RINSE 60 ML BOTTLE SWISH/SPIT SCH ×2 (09:34→21:21)
[2017-05-19] MEDS: PANTOPRAZOLE 40 MG TABLET PO SCH (09:34)
[2017-05-19] MEDS: INSULIN GLARGINE 100 UNIT/ML SUBCUT SCH ×2 (09:37→21:22)
[2017-05-19] MEDS: traMADol 50 MG TABLET PO PRN (10:00)
[2017-05-19] MEDS: EZETIMIBE 10 MG TABLET PO SCH (21:21)
[2017-05-19] MEDS: ZALEPLON 5 MG CAPSULE PO PRN (21:21)
[2017-05-20 06:56] LABS: Basophils # 0.1 10*3/uL (0.0-0.2); Basophils % 0.5 % (0.0-0.8); Eosinophils # 0.4 10*3/uL (0.0-0.87); Hematocrit 30.4 VOL% (42.0-52.0); Hemoglobin 10.2 GM/DL (14.0-18.0); Immature Granulocytes % 0.8 %; Immature Granulocytes Absolute 0.09 #; Lymphocytes % 17.4 % (21.2-54.2); Mean Corpuscular HGB Conc 33.6 GM/DL (32-36); Mean Corpuscular Hemoglobin 31 PG (27-34); Mean Corpuscular Volume 92.7 FL (87-102); Mean Platelet Volume 10.1 FL (9.6-12.0); Monocytes # 0.8 10*3/uL (0.11-0.8); Monocytes % 7.1 % (1.7-12.7); Neutrophils # 8.3 10*3/uL (1.4-7.4); Neutrophils % 71.2 % (38.7-73.9); Platelet Count 305 T/CUMM (130-400); Red Blood Count 3.28 MC/CUMM (3.8-5.5); Red Cell Distribution Width 13.5 % (9.3-17.3); White Blood Count 11.6 T/CUMM (4-12)
[2017-05-20 07:31] LABS: Albumin 2.7 G/DL (3.4-5.0); Bilirubin,Total 0.6 MG/DL (0.2-1.0); Calcium 8.5 MG/DL (8.5-10.1); Osmolality,Calculated 291.7 MOS/KG (273-304); Potassium 4.3 MMOL/L (3.5-5.1); Total Protein 6.7 G/DL (6.4-8.3)
[2017-05-20] MEDS: INSULIN REGULAR 100 UNIT/ML SUBCUT SCH ×4 (08:59→21:43)
[2017-05-20] MEDS: ASPIRIN EC 81 MG TABLET PO SCH (09:01)
[2017-05-20] MEDS: DOCUSATE SODIUM 100 MG CAPSULE PO SCH (09:01)
[2017-05-20] MEDS: INSULIN GLARGINE 100 UNIT/ML SUBCUT SCH ×2 (09:01→21:44)
[2017-05-20] MEDS: TAMSULOSIN 0.4 MG CAPSULE PO SCH (09:02)
[2017-05-20] MEDS: AMIODARONE 200 MG TABLET PO SCH (09:02)
[2017-05-20] MEDS: ENOXAPARIN 30 MG/0.3 ML SYRINGE SUBCUT SCH ×2 (09:02→09:41)
[2017-05-20] MEDS: PANTOPRAZOLE 40 MG TABLET PO SCH (09:02)
[2017-05-20] MEDS: CARVEDILOL 3.125 MG TABLET PO SCH (09:02)
[2017-05-20] MEDS: FUROSEMIDE 40 MG/4 ML VIAL IV SCH (09:02)
[2017-05-20] MEDS: FERROUS SULFATE 325 MG TABLET PO SCH (09:02)
[2017-05-20] MEDS: ZINC OXIDE PASTE 113 GM TUBE TOP SCH ×2 (09:08→21:43)
[2017-05-20] MEDS: CHLORHEXIDINE 0.12% ORAL RINSE 60 ML BOTTLE SWISH/SPIT SCH ×2 (09:08→21:44)
[2017-05-20] MEDS: POLYETHYLENE GLYCOL POWDER 17 GM PACK PO SCH (09:08)
[2017-05-20] MEDS ORDERED: TUBERCULIN SKIN TEST 0.1 ML SYRINGE INTRADERM ONE (14:00)
[2017-05-20] MEDS: EZETIMIBE 10 MG TABLET PO SCH (21:42)
[2017-05-20] MEDS: ZALEPLON 5 MG CAPSULE PO PRN (21:42)
[2017-05-21 03:51] LABS: Basophils # 0.1 10*3/uL (0.0-0.2); Basophils % 0.7 % (0.0-0.8); Eosinophils # 0.3 10*3/uL (0.0-0.87); Eosinophils % 3.4 % (0.00-10.9); Hematocrit 27.1 VOL% (42.0-52.0); Immature Granulocytes % 0.7 %; Immature Granulocytes Absolute 0.06 #; Lymphocytes # 1.6 10*3/uL (1.4-4.0); Lymphocytes % 17.6 % (21.2-54.2); Mean Corpuscular HGB Conc 33.2 GM/DL (32-36); Mean Corpuscular Hemoglobin 31 PG (27-34); Mean Corpuscular Volume 92.5 FL (87-102); Mean Platelet Volume 10.7 FL (9.6-12.0); Monocytes # 0.8 10*3/uL (0.11-0.8); Monocytes % 8.3 % (1.7-12.7); Neutrophils # 6.3 10*3/uL (1.4-7.4); Neutrophils % 69.3 % (38.7-73.9); Platelet Count 260 T/CUMM (130-400); Red Blood Count 2.93 MC/CUMM (3.8-5.5); Red Cell Distribution Width 13.3 % (9.3-17.3); White Blood Count 9.1 T/CUMM (4-12)
[2017-05-21 04:42] LABS: Albumin 2.4 G/DL (3.4-5.0); Bilirubin,Total 0.7 MG/DL (0.2-1.0); Osmolality,Calculated 294.4 MOS/KG (273-304); Potassium 4.2 MMOL/L (3.5-5.1); Total Protein 5.8 G/DL (6.4-8.3)
[2017-05-21] MEDS: ASPIRIN EC 81 MG TABLET PO SCH (10:54)
[2017-05-21] MEDS: AMIODARONE 200 MG TABLET PO SCH (10:54)
[2017-05-21] MEDS: DOCUSATE SODIUM 100 MG CAPSULE PO SCH ×2 (10:54→11:05)
[2017-05-21] MEDS: ENOXAPARIN 30 MG/0.3 ML SYRINGE SUBCUT SCH (10:55)
[2017-05-21] MEDS: CARVEDILOL 3.125 MG TABLET PO SCH (10:55)
[2017-05-21] MEDS: FERROUS SULFATE 325 MG TABLET PO SCH (10:55)
[2017-05-21] MEDS: TAMSULOSIN 0.4 MG CAPSULE PO SCH (10:55)
[2017-05-21] MEDS: PANTOPRAZOLE 40 MG TABLET PO SCH (10:56)
[2017-05-21] MEDS: CHLORHEXIDINE 0.12% ORAL RINSE 60 ML BOTTLE SWISH/SPIT SCH (10:56)
[2017-05-21] MEDS: INSULIN GLARGINE 100 UNIT/ML SUBCUT SCH (10:56)
[2017-05-21] MEDS: POLYETHYLENE GLYCOL POWDER 17 GM PACK PO SCH (10:57)
[2017-05-21] MEDS: FUROSEMIDE 40 MG/4 ML VIAL IV SCH (11:01)
[2017-05-21] MEDS: INSULIN REGULAR 100 UNIT/ML SUBCUT SCH ×2 (11:06→13:02)
[2017-05-21] MEDS: ZINC OXIDE PASTE 113 GM TUBE TOP SCH (11:07)
[2017-05-21 11:54] VITALS: BP 144/79
== END 2017-05-21 13:25 | disposition swing bed (61) | DRG 233 ==
LOC: EDUNIT# → EDBD → N.ED 18:41 → SUATTDRO 20:37 → N.EDINP 20:37 → SUATTDRO 20:38 → N.TELES 21:23 → N.CVR 05-08 09:10 → N.ICU 05-09 17:49 → N.TELES 05-12 11:01
PROVIDERS: ADMIT Internal Medicine; ATTEND Hospitalist
PROC: CLCCHCL (ICD-10-PCS; 2017-04-29 13:45)

== ENCOUNTER 2018-08-30 17:18 | Inpatient (IN) ==
[2018-08-30] MEDS ORDERED: DOPamine 800 MG/250 ML PREMIX IV PRN (17:28)
[2018-08-30] MEDS ORDERED: DOPamine 800 MG/250 ML PREMIX IV ONE (17:30)
[2018-08-30 17:42] LABS: ABG Base Excess -9.7 MMOL/L (-2.5-2.5); ABG HCO3 16.7 MMOL/L (20-26); ABG Oxygen Saturation 99.4 % (95-100); ABG PCO2 51.8 MM HG (35-48); ABG TCO2 17.7 MMOL/L (23-27)
[2018-08-30 17:44] LABS: ABG PH 7.175 (7.35-7.45)
[2018-08-30] MEDS ORDERED: SODIUM BICARBONATE 50 MEQ/50 ML SYRINGE IV ONE (17:46)
[2018-08-30] MEDS ORDERED: SODIUM BICARBONATE 50 MEQ/50 ML VIAL IV STA (17:51)
[2018-08-30 18:23] LABS: Albumin 3.4 G/DL (3.4-5.0); Bilirubin,Total 0.8 MG/DL (0.2-1.0); Calcium 7.8 MG/DL (8.5-10.1); Osmolality,Calculated 301.7 MOS/KG (273-304); Potassium 4.9 MMOL/L (3.5-5.1); Total Protein 7.7 G/DL (6.4-8.3)
[2018-08-30 18:41] LABS: Basophils # 0.1 10*3/uL (0.0-0.2); Basophils % 0.3 % (0.0-0.8); Eosinophils % 0.2 % (0.00-10.9); Hematocrit 36.3 VOL% (42.0-52.0); Hemoglobin 11.3 GM/DL (14.0-18.0); Immature Granulocytes Absolute 0.19 #; Lymphocytes # 1.3 10*3/uL (1.4-4.0); Lymphocytes % 7.4 % (21.2-54.2); Mean Corpuscular HGB Conc 31.1 GM/DL (32-36); Mean Corpuscular Hemoglobin 31 PG (27-34); Mean Corpuscular Volume 98.6 FL (87-102); Monocytes # 0.3 10*3/uL (0.11-0.8); Monocytes % 1.9 % (1.7-12.7); Neutrophils # 16.2 10*3/uL (1.4-7.4); Neutrophils % 89.2 % (38.7-73.9); Platelet Count 188 T/CUMM (130-400); Red Blood Count 3.68 MC/CUMM (3.8-5.5); Red Cell Distribution Width 13.2 % (9.3-17.3); White Blood Count 18.2 T/CUMM (4-12)
[2018-08-30] MEDS ORDERED: MAGNESIUM SULF RIDER 2 GM in PREMIX 1 EACH IV PRN (18:54)
[2018-08-30] MEDS ORDERED: INSULIN LISPRO 100 UNIT/ML SUBCUT ONE (18:54)
[2018-08-30] MEDS ORDERED: POTASSIUM CHLORIDE 20 MEQ TABLET PO PRN (18:54)
[2018-08-30] MEDS ORDERED: SODIUM CHLORIDE 0.45% 1,000 ML IV SCH (19:00)
[2018-08-30] MEDS ORDERED: ENOXAPARIN 120 MG/0.8 ML SYRINGE SUBCUT SCH (19:00)
[2018-08-30] MEDS ORDERED: VANCOMYCIN INJ 1,500 MG in SODIUM CHLORIDE 0.9% 500 ML IV ONE (19:00)
[2018-08-30] MEDS ORDERED: VANCOMYCIN INJ 1,500 MG in SODIUM CHLORIDE 0.9% 500 ML IV PRN (19:10)
[2018-08-30] MEDS ORDERED: PIPERACILLIN/TAZOBACTAM 3,375 MG in SODIUM CHLORIDE 0.9% 100 ML IV SCH (20:00)
[2018-08-30] MEDS ORDERED: INSULIN LISPRO 100 UNIT/ML SUBCUT SCH (20:30)
[2018-08-30] MEDS ORDERED: GLUCAGON 1 MG VIAL IM PRN (21:27)
[2018-08-30] MEDS ORDERED: DEXTROSE 50% 25 GM/50 ML SYRINGE IV PRN (21:27)
[2018-08-30] MEDS ORDERED: SODIUM CHLORIDE 0.9% 3,550 ML IV ONE (21:29)
[2018-08-30] MEDS ORDERED: INSULIN LISPRO 100 UNIT/ML SUBCUT PRN (21:32)
[2018-08-30 21:40] LABS: Allen Test Positive; Pt O2 Delivery Device Ventilator
[2018-08-30 21:42] LABS: ABG Base Excess -2.7 MMOL/L (-2.5-2.5); ABG Oxygen Saturation 99.2 % (95-100); ABG PCO2 37.8 MM HG (35-48); ABG PH 7.383 (7.35-7.45); ABG PO2 302.5 MM HG (80-95); ABG TCO2 23.2 MMOL/L (23-27)
[2018-08-30 22:34] LABS: Apearance,Urine Slightly Hazy (Clear); Bacteria,Urine Few /HPF (Few); Bilirubin,Urine Negative (Negative); Blood, Urine Moderate mg/dL (Negative); Glucose,Urine (UA) >=500 mg/dL (Negative); Ketones,Urine Negative (Negative); Mucus,Urine Occasional /LPF (Occasional); Nitrite,Urine Negative (Negative); Protein,Urine 100 MG/DL; RBC,Urine 10 /HPF (0-4); Squamous Epithelial Cell,Urine Occasional /HPF (0-10); Urine Color Yellow (Yellow); Urine Specific Gravity 1.007 (1.001-1.035); Urine Urobilinogen < 2.0 EU/DL (0.2-1.0); WBC,Urine 13 /HPF (0-6)
[2018-08-31] MEDS ORDERED: MANNITOL 25 GM in PREMIX 1 EACH IV ONE (01:43)
[2018-08-31 02:00] LABS: Calcium 7.5 MG/DL (8.5-10.1); Osmolality,Calculated 308.1 MOS/KG (273-304); Potassium 4.1 MMOL/L (3.5-5.1)
[2018-08-31] MEDS ORDERED: DEXAMETHASONE 4 MG/1 ML VIAL IV ONE (02:22)
[2018-08-31 02:36] LABS: Allen Test Positive; Pt O2 Delivery Device Ventilator
[2018-08-31 02:37] LABS: ABG Base Excess -3.6 MMOL/L (-2.5-2.5); ABG HCO3 19.5 MMOL/L (20-26); ABG Oxygen Saturation 98.7 % (95-100); ABG PCO2 29.1 MM HG (35-48); ABG PH 7.443 (7.35-7.45); ABG PO2 181.6 MM HG (80-95); ABG TCO2 20.3 MMOL/L (23-27)
[2018-08-31 02:57] LABS: Basophils % 0.3 % (0.0-0.8); Eosinophils % 0.1 % (0.00-10.9); Hematocrit 32.6 VOL% (42.0-52.0); Hemoglobin 10.6 GM/DL (14.0-18.0); Immature Granulocytes % 0.7 %; Immature Granulocytes Absolute 0.11 #; Lymphocytes # 1.1 10*3/uL (1.4-4.0); Lymphocytes % 7.1 % (21.2-54.2); Mean Corpuscular HGB Conc 32.5 GM/DL (32-36); Mean Corpuscular Hemoglobin 31 PG (27-34); Mean Corpuscular Volume 94.2 FL (87-102); Mean Platelet Volume 11.1 FL (9.6-12.0); Monocytes # 0.9 10*3/uL (0.11-0.8); Monocytes % 5.9 % (1.7-12.7); Neutrophils # 13.7 10*3/uL (1.4-7.4); Neutrophils % 85.9 % (38.7-73.9); Platelet Count 157 T/CUMM (130-400); Red Blood Count 3.46 MC/CUMM (3.8-5.5); Red Cell Distribution Width 13.2 % (9.3-17.3); White Blood Count 15.9 T/CUMM (4-12)
[2018-08-31 03:21] LABS: Calcium 7.3 MG/DL (8.5-10.1); Osmolality,Calculated 305.3 MOS/KG (273-304); Risk Ratio 2.86; VLDL CHOLESTEROL 22.2 MG/DL
[2018-08-31] MEDS ORDERED: SODIUM CHLORIDE 0.9% 1,000 ML IV SCH (03:30)
[2018-08-31 05:21] VITALS: BP 160/85
[2018-08-31] MEDS ORDERED: PANTOPRAZOLE 40 MG VIAL IV SCH (09:00)
== END 2018-08-31 04:40 | disposition hospice, home (50) | DRG 296 ==
LOC: N.ED 17:18 → N.EDINP 19:02 → N.CC 20:02
PROVIDERS: ADMIT Internal Medicine; ATTEND Internal Medicine